=== PATIENT | female | born 2000 | race Caucasian/White ===

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

== ENCOUNTER → 2024-06-23 11:55 | Outpatient (CLI) | payer OTHER, SELFPAY ==
--- NOTE | 2024-06-23 11:57 | DI.US.S_ITS ---
PROCEDURE: US OB <= 14 WEEKS FETUS INDICATIONS: SPOTTING OUTSIDE/PRIOR DATING DATA: Last menstrual period (LMP): 05/05/2024. LMP-based estimated date of delivery (JETT): 02/09/2025. First dating scan (date and location): 06/23/2024. Estimated date of delivery (JETT) from first dating scan: 02/08/2025. TECHNIQUE: Real-time scanning was performed of the fetus and maternal pelvic organs, with image documentation. Endovaginal scanning was also performed to better visualize the fetus and maternal ovaries. COMPARISON: None. FINDINGS: pole measures 1 cm. Ultrasound age is 7 weeks and 1 day. Cardiac motion is seen at a rate of 140 beats per minute. Yolk sac is present. Probable right corpus luteum cyst. Suspect small perigestational bleeds, on the right measuring 1.3 x 1.3 cm and inferior uterus measuring 2.4 x 2 cm IMPRESSION: Living intrauterine gestation at an ultrasound age of 7 weeks and 1 day, consistent with the reported LMP. Small perigestational bleeds. Dictated by: Isidro Mercado M.D. on 06/23/2024 at 15:29 Approved by: Isidro Mercado M.D. on 06/23/2024 at 15:31
== END ==
LOC: US 11:56
PROVIDERS: Referring Provider Nurse Practitioner Obstetrics & Gynecology; Visit Provider Nurse Practitioner Obstetrics & Gynecology
DX: O26.851 Spotting complicating pregnancy, first trimester (principal); Z3A.01 Less than 8 weeks gestation of pregnancy
CPT/HCPCS: 76801; 76817

== ENCOUNTER → 2024-09-15 13:26 | Outpatient (CLI) | payer OTHER, SELFPAY ==
--- NOTE | 2024-09-15 13:28 | DI.US.S_ITS ---
PROCEDURE: US OB >= 14 WEEKS FETUS INDICATIONS: ANATOMY SCAN OUTSIDE/PRIOR DATING DATA: Last menstrual period (LMP): 05/05/2024. LMP-based estimated date of delivery (JETT): 02/09/2025. First dating scan (date and location): 06/23/2024. Estimated date of delivery (JETT) from first dating scan: 02/08/2025. The calculations are made using the working JETT of 02/09/2025. TECHNIQUE: Real-time scanning was performed of the fetus, with image documentation and biometric measurements. Endovaginal scanning: No COMPARISON: None. FINDINGS: General: A single living intrauterine gestation is present. Presentation: Transverse. Placenta: Placental position is fundal , without previa. Amniotic fluid index: 17.5 cm, normal range is 5-24 cm. Single deepest vertical pocket is 5.8 cm. heart rate: 155 beats per minute. Maternal cervical canal: 4.8 cm long. Normal lower limit is 2.5 cm. biometrics: Biparietal diameter: 4.8 cm, 20 week 3 day Head circumference: 17.1 cm, 19 week 5 day Abdominal circumference: 14.6 cm, 19 week 6 day Femur length: 3.0 cm, 19 week 1 day Clinically estimated gestational age: 19 week 0 day Composite gestational age from present scan: 19 week 6 day Estimated weight and percentile: 301 g, 79% Anatomic survey: Neuro: Ventricles are non-dilated at less than 10 mm. Cisterna magna is normal at 3-11 mm. Cerebellum is normal in size and morphology. Nuchal skin fold: Normal at less than 6 mm between 14-21 weeks gestational age. Face: Nose and lips, facial profile are normal. Spine: No evidence for spina bifida. Heart: 4-chambered heart is present, with normal ventricular outflow tracts. Diaphragm: Diaphragm is intact. Stomach: Left-sided stomach is present. Kidneys: No hydronephrosis. Normal is less than 5 mm in 2nd trimester, less than 7 mm in 3rd trimester. Cord: 3-vessel cord has orthotopic insertion. Bladder: Normal in size. Extremities: All 4 extremities identified. IMPRESSION: Single live intrauterine consistent with a 19 week 6 day gestation by current ultrasound. Minimally prominent renal collecting systems without hydronephrosis. Attention on follow-up. Otherwise unremarkable anatomic survey Approved by: Sincere Whitmore M.D. on 09/15/2024 at 16:51
== END ==
LOC: US 13:27
PROVIDERS: Referring Provider Advanced Practice Midwife; Visit Provider Advanced Practice Midwife
DX: Z34.92 Encounter for supervision of normal pregnancy, unspecified, second trimester (principal); Z3A.20 20 weeks gestation of pregnancy
CPT/HCPCS: 76811

== ENCOUNTER 2024-11-10 12:18 | Outpatient (CLI) | payer OTHER, SELFPAY ==
--- NOTE | 2024-11-10 12:31 | DI.US.S_ITS ---
PROCEDURE: US OB LIMITED INDICATIONS: 27 WEEKS; CONTRACTIONS; CX LENGTH OUTSIDE/PRIOR DATING DATA: Last menstrual period (LMP): 05/05/2024. LMP-based estimated date of delivery (JETT): 02/09/2025. First dating scan (date and location): 06/23/2024. Estimated date of delivery (JETT) from first dating scan: 02/08/2025. TECHNIQUE: Real-time scanning was performed of the fetus, with image documentation. Endovaginal scanning: Not done COMPARISON: [facility], OB <= 14 WEEKS FETUS, 06/23/2024, 12:30. [facility], OB >= 14 WEEKS FETUS, 09/15/2024, 13:39. FINDINGS: A single live intrauterine gestation is present. Presentation: Breech. Placenta: Placental position is posterior/fundal, without previa. Amniotic fluid index: 17.2 cm, normal range is 5-24 cm. Single deepest vertical pocket is 8 cm. heart rate: 152 beats per minute. Maternal cervical canal: 3.9 cm long. There is no funneling of the internal cervical os. Clinically estimated gestational age: 27 weeks 0 days IMPRESSION: The cervical length is 3.9 cm. No funneling of the internal cervical os. Dictated by: Fredrick Bahean M.D. on 11/10/2024 at 12:06 Approved by: Fredrick Bahena M.D. on 11/10/2024 at 12:08
[2024-11-10 12:49] LABS: Appearance Urine UA CLEAR; Bilirubin Urine UA NEGATIVE (NEGATIVE); Color Urine UA YELLOW; Glucose Urine UA NEGATIVE (Negative); Ketones Urine UA NEGATIVE (NEGATIVE); Leukocyte Esterase Urine UA 2+ (NEGATIVE); Nitrite Urine UA NEGATIVE (Negative); Occult Blood Urine UA NEGATIVE (Negative); Protein Urine UA NEGATIVE (Negative); Specific Gravity Urine UA 1.010 (1.000-1.035); Urobilinogen Urine UA 0.2 E.U./dL (0.2)
[2024-11-10 12:50] LABS: pH Urine UA 6.5 (4.5-8.0)
[2024-11-10 13:05] LABS: Culture Indicated Urine Specimen Cultured
--- NOTE | 2024-11-10 14:06 | P.TNLD_ITS ---
Visit Information Visit Information Date of evaluation: 11/10/24 Primary OB Provider: Sierra Hou On-call OB Provider: Sierra Hou Reason for Evaluation: Yes pre-term labor Comments/Additional reasons for admission: Leena is a at 27w0d by LMP confirmed by 7 week ultrasound. She reports contractions every 5-10 min since approx 0830 this morning, so came into triage for evaluation. Pain is in her back, rhythmic with tightening she feels with her uterus. Baby moving well. Denies vaginal bleeding, leaking of fluid. Declines starting antibiotics for possible UTI at this time. Vital Signs Vital Signs: BP: 115/70 HR: 106 bpm SpO2: 97% Temp: 36.9 C PFSH Medical History Ovarian cyst Depression with anxiety Surgical History Hx of breast reduction, elective Family History Grandmother Thyroid condition Sister Depression Social History marital status: unmarried,living together household members: significant other lives independently: Yes education level: college 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 Smokeless tobacco user: other alcohol intake: former substance use type: does not use Review of Systems Review of Systems Narrative: Negative except as mentioned in HPI Genitourinary Genitourinary: Reports as per HPI Comments: Cervical exam: long, closed. Objective Labs Labs: Laboratory Results - last 24 hr 11/10/24 12:30 Urine Color Yellow Urine Appearance Clear Urine pH 6.5 Ur Specific [place] 1.010 Urine Protein Negative Urine Glucose (UA) Negative Urine Ketones Negative Urine Occult Blood Negative Urine Nitrate Negative Urine Bilirubin Negative Urine Urobilinogen 0.2 Ur Leukocyte Esterase 2+ H Urine RBC None seen Urine WBC 5-10/hpf H Ur Squamous Epith Cells 5-10 /hpf H Amorphous Sediment 1+ Urine Bacteria Moderate (10-30) H Ur Culture Indicated? Specimen cultured Vol Urine Centrifuged 10ml (spun) Evaluation Evaluation Baseline heart rate: 150 Variability: Moderate (6-25) monitor accelerations: Present (10x10) Monitor Decelerations: Periodic Contraction Frequency (minutes): 8 (7-10, irregular, mild to palpation) Category of Tracing: Appropriate for gestational age (Reactive) Cervical dilation (cm): 0 Cervical effacement (%): 10 station: -4 Diagnosis, Plan/Disposition Final Diagnosis (1) uterine contractions in second trimester, antepartum: Status: Acute Problem details: Cervical length: 3.9 cm; NOT in labor (2) Supervision of normal in second trimester: Status: Acute Plan/Disposition Plan: Assessment: at 27w0d Pre-term contractions Abnormal UA RNST NST Cervical length ultrasound FFn collected and sent to lab UA collected; reflexed to Aptima and Affirm swabs collected to test for GC/CT, BV, yeast and trich. Ibuprofen 600 mg q 6-8 hours until RTC Friday for follow up/scheduled PNV.
== END 2024-11-10 14:00 | disposition home or self-care (01) ==
LOC: LABOR 16:03 → OB 11-11 08:00
PROVIDERS: Referring Provider Nurse Practitioner Obstetrics & Gynecology; Visit Provider Nurse Practitioner Obstetrics & Gynecology
DX: O47.02 False labor before 37 completed weeks of gestation, second trimester (principal); O26.892 Other specified pregnancy related conditions, second trimester; R82.90 Unspecified abnormal findings in urine; Z3A.27 27 weeks gestation of pregnancy
CPT/HCPCS: 59025; 76815; 81001; 87086; 87491; 87591; 87661; 87798; 87801; G0378; G0379

== ENCOUNTER → 2024-11-16 10:36 | Outpatient (CLI) | payer OTHER, SELFPAY ==
--- NOTE | 2024-11-16 10:39 | DI.US.S_ITS ---
PROCEDURE: US OB LIMITED INDICATIONS: LGA OUTSIDE/PRIOR DATING DATA: The calculations are made using the JETT of 02/09/2025. TECHNIQUE: Real-time scanning was performed of the fetus, with image documentation and biometric measurements. Endovaginal scanning: Not performed COMPARISON: [facility], OB LIMITED, 11/10/2024, 12:48. FINDINGS: General: A single living intrauterine gestation is present. Presentation: Vertex. Placenta: Placental position is posterior fundal , without previa. Amniotic fluid index: 20.9 cm, normal range is 5-24 cm. Single deepest vertical pocket is 6.1 cm. heart rate: 147 beats per minute. Maternal cervical canal: 4.4 cm long. Normal lower limit is 2.5 cm. biometrics: Biparietal diameter: 7.5 cm, 30 weeks 1 day Head circumference: 27.5 cm, 30 weeks 0 days Abdominal circumference: 25.5 cm, 29 weeks 5 days Femur length: 5.3 cm, 28 weeks 2 days Clinically estimated gestational age: 27 weeks 6 days Composite gestational age from present scan: 29 weeks 4 days Estimated weight and percentile: 1373 g, 89% Other: Not applicable. IMPRESSION: 1. Single live intrauterine consistent with 29 weeks and 4 days. 2. Estimated weight is in the 89th percentile. Developing macrosomia is in the differential, recommend follow-up ultrasound. 3. Amniotic fluid index of 20.9 cm is still within normal limits but at the higher and. We strive to produce accurate, complete, and clear reports of imaging services. To assist us in improving patient care, this report was composed using standard report templates and voice recognition software. Therefore, it may contain abnormal punctuation, insertions and/or omissions. Occasional wrong-word or sound-alike substitutions may occur. Though we review the report and make efforts to correct it, we do recommend that the report be read carefully in proper context to recognize any text inaccuracies. Dictated by: Jeffrey Mistry M.D. on 11/16/2024 at 13:17 Approved by: Jeffrey Mistry M.D. on 11/16/2024 at 13:20
== END ==
LOC: US 10:38
PROVIDERS: PCP Student in an Organized Health Care Education/Training Program; Referring Provider Nurse Practitioner Obstetrics & Gynecology; Visit Provider Nurse Practitioner Obstetrics & Gynecology
DX: O26.843 Uterine size-date discrepancy, third trimester (principal); Z3A.29 29 weeks gestation of pregnancy
CPT/HCPCS: 76815

== ENCOUNTER 2024-11-20 07:35 | Outpatient (CLI) | payer OTHER, SELFPAY ==
--- NOTE | 2024-11-20 | DI.US.S_ITS ---
PROCEDURE: US OB LIMITED INDICATIONS: cervical length OUTSIDE/PRIOR DATING DATA: Last menstrual period (LMP): 05/05/2024. LMP-based estimated date of delivery (JETT): 02/09/2025. First dating scan (date and location): 06/23/2024. Estimated date of delivery (JETT) from first dating scan: 02/08/2025. The calculations are made using the JETT by LMP JETT of 02/09/2025. TECHNIQUE: Real-time scanning was performed of the fetus, with image documentation. Endovaginal scanning: Was not performed COMPARISON: [facility], US OB LIMITED, 11/16/2024, 10:53. FINDINGS: A single living intrauterine gestation is present. Presentation: Breech Placenta: Placental position is posterior fundal, without previa. Amniotic fluid index: 18.6 cm, normal range is 5-24 cm. Single deepest vertical pocket is 7 cm. heart rate: 160 beats per minute. Maternal cervical canal: 3.6 cm long. Normal lower limit is 2.5 cm. Clinically estimated gestational age: 28 weeks 3 days Estimated gestational age from initial scan: 27 weeks 6 days. IMPRESSION: Live intrauterine with a normal cervical length. Dictated by: Will Ashton M.D. on 11/20/2024 at 8:31 Approved by: Will Ashton M.D. on 11/20/2024 at 8:36
[2024-11-20 08:03] LABS: Appearance Urine UA CLEAR; Bilirubin Urine UA NEGATIVE (NEGATIVE); Color Urine UA YELLOW; Glucose Urine UA NEGATIVE (Negative); Ketones Urine UA NEGATIVE (NEGATIVE); Leukocyte Esterase Urine UA 3+ (NEGATIVE); Nitrite Urine UA NEGATIVE (Negative); Occult Blood Urine UA NEGATIVE (Negative); Protein Urine UA NEGATIVE (Negative); Specific Gravity Urine UA <=1.005 (1.000-1.035); Urobilinogen Urine UA 0.2 E.U./dL (0.2)
[2024-11-20 08:08] LABS: pH Urine UA 6.5 (4.5-8.0)
--- NOTE | 2024-11-20 08:14 | P.TNLD_ITS ---
Visit Information Visit Information Date of evaluation: 11/20/24 Primary OB Provider: Marilee Almeida Reason for Evaluation: Yes rule out labor Comments/Additional reasons for admission: Camila is a 24 year old at 28w 3d here for rule out of pre-term labor. She called CNM at 0532 with c/o menstrual like cramping that woke her up at 0400 and feeling like a clot was trying to come through the cervix. She texted back at 0637 reporting it was not improving so CNM recommended coming in for evaluation. Denies vaginal bleeding and leaking of fluid. Vital Signs Vital Signs: BP: 121/66, P: 101, T: 36.9 C [facility] Medical History Ovarian cyst Depression with anxiety Surgical History Hx of breast reduction, elective Family History Grandmother Thyroid condition Sister Depression Social History marital status: unmarried,living together household members: significant other lives independently: Yes education level: college 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 Smokeless tobacco user: other alcohol intake: former substance use type: does not use Review of Systems Review of Systems ROS: Yes All systems reviewed with the patient and are negative except as otherwise documented Exam Vital Signs (past 8 hours): see above Presentation: full/complete breech Objective Imaging OB US >14wks, limited- cervical length: My impression: CL-3.7cm, no funneling Radiologist's impression: PROCEDURE: US OB LIMITED INDICATIONS: cervical length OUTSIDE/PRIOR DATING DATA: Last menstrual period (LMP): 05/05/2024. LMP-based estimated date of delivery (EJTT): 02/09/2025. First dating scan (date and location): 06/23/2024. Estimated date of delivery (JETT) from first dating scan: 02/08/2025. The calculations are made using the JETT by LMP JETT of 02/09/2025. TECHNIQUE: Real-time scanning was performed of the fetus, with image documentation. Endovaginal scanning: Was not performed COMPARISON: [facility], , OB LIMITED, 11/16/2024, 10:53. FINDINGS: A single living intrauterine gestation is present. Presentation: Breech Placenta: Placental position is posterior fundal, without previa. Amniotic fluid index: 18.6 cm, normal range is 5-24 cm. Single deepest vertical pocket is 7 cm. heart rate: 160 beats per minute. Maternal cervical canal: 3.6 cm long. Normal lower limit is 2.5 cm. Clinically estimated gestational age: 28 weeks 3 days Estimated gestational age from initial scan: 27 weeks 6 days. IMPRESSION: Live intrauterine with a normal cervical length. Dictated by: Will Ashton M.D. on 11/20/2024 at 8:31 Approved by: Will Ashton M.D. on 11/20/2024 at 8:36 Labs Labs: Laboratory Results - last 24 hr 11/20/24 07:40 Urine Color Yellow Urine Appearance Clear Urine pH 6.5 Ur Specific [place] <=1.005 Urine Protein Negative Urine Glucose (UA) Negative Urine Ketones Negative Urine Occult Blood Negative Urine Nitrate Negative Urine Bilirubin Negative Urine Urobilinogen 0.2 Ur Leukocyte Esterase 3+ H OPAL/Wet Mount: White blood cells Many WBCs seen Clue cells: None seen Yeast: None seen Trichomonas: None seen Evaluation Evaluation Baseline heart rate: 150 Variability: Moderate (6-25) monitor accelerations: Present Monitor Decelerations: Absent Category of Tracing: Reactive Cervical dilation (cm): 1 Comments: CE: Soft, thick Diagnosis, Plan/Disposition Final Diagnosis (1) False labor before 37 completed weeks of gestation, third trimester: Status: Acute (2) Encounter for supervision of normal first , third trimester: Status: Acute (3) Breech presentation: Status: Acute Plan/Disposition Plan: fFN collected and held given cervical exam and cervical length >3cm Patient given reassurance for no contractions by [place] and low concern for pre- term labor after evaluation No concern for urinary or vaginal infection Patient declined continued observation Reviewed warning signs and when to call Discharge to home F/U in Clinic as previously scheduled OB Disposition: home
[2024-11-20 08:21] LABS: Culture Indicated Urine Cult Not Indicated
== END 2024-11-20 08:56 | disposition home or self-care (01) ==
LOC: LABOR 07:41 → OB 11-23 07:23
PROVIDERS: PCP Student in an Organized Health Care Education/Training Program; Referring Provider Nurse Practitioner Obstetrics & Gynecology; Visit Provider Nurse Practitioner Obstetrics & Gynecology
DX: O47.03 False labor before 37 completed weeks of gestation, third trimester (principal); O32.1XX0 Maternal care for breech presentation, not applicable or unspecified; Z3A.28 28 weeks gestation of pregnancy
CPT/HCPCS: 59025; 76815; 81001; 87210; G0378; G0379

== ENCOUNTER 2024-12-04 11:57 | Outpatient (CLI) | payer OTHER, SELFPAY ==
[2024-12-04 12:19] LABS: Appearance Urine UA CLEAR; Bilirubin Urine UA NEGATIVE (NEGATIVE); Color Urine UA YELLOW; Glucose Urine UA NEGATIVE (Negative); Ketones Urine UA NEGATIVE (NEGATIVE); Leukocyte Esterase Urine UA 1+ (NEGATIVE); Nitrite Urine UA NEGATIVE (Negative); Occult Blood Urine UA NEGATIVE (Negative); Protein Urine UA NEGATIVE (Negative); Specific Gravity Urine UA 1.010 (1.000-1.035); Urobilinogen Urine UA 0.2 E.U./dL (0.2)
[2024-12-04 12:21] LABS: pH Urine UA 6.0 (4.5-8.0)
[2024-12-04 12:25] LABS: Culture Indicated Urine Specimen Cultured
== END 2024-12-04 12:52 | disposition home or self-care (01) ==
LOC: LABOR 12:35 → OB 12-06 12:13
PROVIDERS: PCP Student in an Organized Health Care Education/Training Program; Referring Provider Student in an Organized Health Care Education/Training Program; Visit Provider Student in an Organized Health Care Education/Training Program
DX: O47.03 False labor before 37 completed weeks of gestation, third trimester (principal); Z3A.30 30 weeks gestation of pregnancy
CPT/HCPCS: 59025; 81001; 87086; G0378; G0379

== ENCOUNTER → 2024-12-22 11:00 | Outpatient (CLI) | payer OTHER, SELFPAY ==
--- NOTE | 2024-12-22 11:01 | DI.US.S_ITS ---
PROCEDURE: US OB FOLLOW UP
== END ==
LOC: US 11:00
PROVIDERS: PCP Student in an Organized Health Care Education/Training Program; Referring Provider Family Medicine; Visit Provider Family Medicine
DX: Z34.03 Encounter for supervision of normal first pregnancy, third trimester (principal); Z3A.34 34 weeks gestation of pregnancy
CPT/HCPCS: 76816

== ENCOUNTER 2024-12-26 08:44 | Outpatient (CLI) | payer OTHER, SELFPAY ==
--- NOTE | 2024-12-26 09:22 | PM.OBTRLD ---
Visit Information Visit Information Date of evaluation: 12/26/24 Primary OB Provider: Rafaela Molina On-call OB Provider: Amanda Anthony Comments/Additional reasons for admission: This is a 24 yo at 33w4d here with contractions/back cramping for past 24 hours. pain /10. Lost mucus plug yesterday. [facility] Medical History (Updated 12/13/24 @ 11:23 by Rosemary Thomas MD) Ovarian cyst Surgical History (Updated 11/29/24 @ 13:36 by Ashly Navarro, RN) History of tympanostomy History of dilation and curettage Hx of breast reduction, elective Family History (Updated 11/29/24 @ 13:38 by Ashly Navarro, RN) Grandmother Hypothyroidism Sister Depression Grandfather Brain cancer Social History (System 11/26/24 @ 12:16 by Constance Floyd) marital status: unmarried,living together number of children: 0 household members: significant other lives independently: Yes caregiver/support person: No housing: house pets and animals: Yes (dogs) education level: college (some college) 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) current occupational exposures/hazards: No special steve needs: No travel history: over 6 months ago seatbelt use: always water heater temp set < 120 deg: Yes working smoke detector in home: Yes fire extinguisher in home: Yes carbon monox detector in home: Yes firearms in home: Yes firearms unloaded and locked: Yes do you feel safe at home: Yes Tobacco: How many years used: 3 (off and on) Smokeless tobacco user: other quit status: has quit before second hand exposure: No alcohol intake: former (~2-3/week when not ) substance use type: does not use during the past year weight has: decreased > 10 lbs (intentional) well-balanced diet: daily or most days daily servings fruits/ve-4 caffeine: Yes (single cup coffee) Type(s) of exercise: walking Exam Narrative Exam Narrative: SVE with visualized closed/1 cm cervix. Copious amounts of foamy yellow discharge. Evaluation Evaluation Baseline heart rate: 135 Variability: Moderate (6-25) monitor accelerations: Present Monitor Decelerations: Absent Uterine Contraction Intensity: Mild Category of Tracing: Reactive Diagnosis, Plan/Disposition Plan/Disposition Plan: 24 yo at 33w4d here with cramping. Speculum exam with copious yellow foamy discharge. Wet mount sent but will treat for BV. Will also give IV fluids, and 25 mg hydroxyzine for uterine irritability. When irritability improves will send home. FU appointment tomorrow with primary OB. OB Disposition: home
[2024-12-26 10:00] LABS: Appearance Urine UA CLEAR; Bilirubin Urine UA NEGATIVE (NEGATIVE); Color Urine UA YELLOW; Glucose Urine UA NEGATIVE (Negative); Ketones Urine UA NEGATIVE (NEGATIVE); Leukocyte Esterase Urine UA 1+ (NEGATIVE); Nitrite Urine UA NEGATIVE (Negative); Occult Blood Urine UA NEGATIVE (Negative); Protein Urine UA NEGATIVE (Negative); Specific Gravity Urine UA <=1.005 (1.000-1.035); Urobilinogen Urine UA 0.2 E.U./dL (0.2)
[2024-12-26 10:01] LABS: pH Urine UA 7.0 (4.5-8.0)
[2024-12-26 10:03] LABS: Culture Indicated Urine Specimen Cultured
== END 2024-12-26 10:29 | disposition home or self-care (01) ==
LOC: LABOR 09:27 → OB 12-27 07:48
PROVIDERS: PCP Student in an Organized Health Care Education/Training Program; Referring Provider Family Medicine; Visit Provider Family Medicine
DX: O23.593 Infection of other part of genital tract in pregnancy, third trimester (principal); Z3A.33 33 weeks gestation of pregnancy; Z36.9 Encounter for antenatal screening, unspecified
CPT/HCPCS: 59025; 59050; 81001; 87070; 87086; 87205; 96360; G0378; A9270; G0379

== ENCOUNTER 2024-12-30 16:34 | Outpatient (CLI) | payer OTHER, SELFPAY ==
--- NOTE | 2024-12-30 16:58 | P.TNLD_ITS ---
Visit Information Visit Information Date of evaluation: 12/30/24 Primary OB Provider: Rafaela Molina Comments/Additional reasons for admission: 24yo presenting at 74 vaginal bleedig this AM which has since resolved. she was wiping and noticed some pink on the toilet paper. This has not recurred since then. She is feeling baby move. HAs noticed pelvic pressure but has noticed this for the last few weeks. She has recently had triage eval with FFN that was negative and multiple negative wet jen. She prefers to hold off on wet mount today but is ok with UA And wtih spec exam [facility] Medical History (Updated 12/13/24 @ 11:23 by Rosemary Thomas MD) Ovarian cyst Surgical History (Updated 11/29/24 @ 13:36 by Ahsly Navarro, [place]) History of tympanostomy History of dilation and curettage Hx of breast reduction, elective Family History (Updated 11/29/24 @ 13:38 by Ashly Navarro, RN) Grandmother Hypothyroidism Sister Depression Grandfather Brain cancer Social History (System 11/26/24 @ 12:16 by Constance Floyd) marital status: unmarried,living together number of children: 0 household members: significant other lives independently: Yes caregiver/support person: No housing: house pets and animals: Yes (dogs) education level: college (some college) 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 ([employer]) current occupational exposures/hazards: No special steve needs: No travel history: over 6 months ago seatbelt use: always water heater temp set < 120 deg: Yes working smoke detector in home: Yes fire extinguisher in home: Yes carbon monox detector in home: Yes firearms in home: Yes firearms unloaded and locked: Yes do you feel safe at home: Yes Tobacco: How many years used: 3 (off and on) Smokeless tobacco user: other quit status: has quit before second hand exposure: No alcohol intake: former (~2-3/week when not ) substance use type: does not use during the past year weight has: decreased > 10 lbs (intentional) well-balanced diet: daily or most days daily servings fruits/ve-4 caffeine: Yes (single cup coffee) Type(s) of exercise: walking Exam Narrative Exam Narrative: Genera- NAD, appears generally comfortable abdomen- soft, gravid, nontender SSE- cervix appears closed and long, there is some slight psychiologic appearing discharge present, no bleeding visible Evaluation Evaluation Baseline heart rate: 135 Variability: Moderate (6-25) monitor accelerations: Present Monitor Decelerations: Absent Contraction Frequency (minutes): 10 Uterine Contraction Intensity: Mild Status: Category l Diagnosis, Plan/Disposition Plan/Disposition Plan: 24yo at 34w1d for vaginal bleeding this AM which has since resolved. 1. vaginal beeding: has since resolved. Discussed wet mount, pt has had multiple with most recent earlier this week, all negative. She is reassuring by NST and SSE and prefers to avoid wet mount. REcent FFN negative as well - SSE reassuring, no bleeding - NST reassuring - UA sent - return precuations reviewed dispo- discharge home, strict labor precautions reviewed, f/up in clinic or sooner if sx recur OB Disposition: home
[2024-12-30 17:46] LABS: Appearance Urine UA CLEAR; Bilirubin Urine UA NEGATIVE (NEGATIVE); Color Urine UA YELLOW; Glucose Urine UA NEGATIVE (Negative); Ketones Urine UA NEGATIVE (NEGATIVE); Leukocyte Esterase Urine UA NEGATIVE (NEGATIVE); Nitrite Urine UA NEGATIVE (Negative); Occult Blood Urine UA NEGATIVE (Negative); Protein Urine UA NEGATIVE (Negative); Specific Gravity Urine UA <=1.005 (1.000-1.035); Urobilinogen Urine UA 0.2 E.U./dL (0.2); pH Urine UA 5.5 (4.5-8.0)
[2024-12-30 17:59] LABS: Culture Indicated Urine Cult Not Indicated
== END 2024-12-30 17:27 | disposition home or self-care (01) ==
LOC: LABOR 16:45 → OB 12-31 09:34
PROVIDERS: PCP Student in an Organized Health Care Education/Training Program; Referring Provider Family Medicine; Visit Provider Student in an Organized Health Care Education/Training Program
DX: O46.93 Antepartum hemorrhage, unspecified, third trimester (principal); Z3A.34 34 weeks gestation of pregnancy
CPT/HCPCS: 59025; 81001; G0378; G0379

== ENCOUNTER 2025-01-06 16:21 | Observation (INO) | payer OTHER, SELFPAY ==
--- NOTE | 2025-01-06 19:20 | PM.OBTRLD ---
Visit Information Visit Information Date of evaluation: 01/06/25 Primary OB Provider: Rafaela Molina Reason for Evaluation: Yes pre-term labor Comments/Additional reasons for admission: 24 yo G1 presenting at 35w1d for contractions and back pain. Discomfort started yesterday with low back pain and developed pelvic pressure as well. She presents today for labor r/o. she has had contractions off and on for a few weeks now. labor work ups have thus far been negative. She has no other complaints today, no Pre-E sx, no dysuria, no vaginal discharge [facility] Medical History (Updated 12/13/24 @ 11:23 by Rosemary Thomas MD) Ovarian cyst Surgical History (Updated 11/29/24 @ 13:36 by Ashly Navarro, [place]) History of tympanostomy History of dilation and curettage Hx of breast reduction, elective Family History (Updated 11/29/24 @ 13:38 by Ashly Navarro RN) Grandmother Hypothyroidism Sister Depression Grandfather Brain cancer Social History (System 11/26/24 @ 12:16 by Constance Floyd) marital status: unmarried,living together number of children: 0 household members: significant other lives independently: Yes caregiver/support person: No housing: house pets and animals: Yes (dogs) education level: college (some college) 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 ([employer]) current occupational exposures/hazards: No special steve needs: No travel history: over 6 months ago seatbelt use: always water heater temp set < 120 deg: Yes working smoke detector in home: Yes fire extinguisher in home: Yes carbon monox detector in home: Yes firearms in home: Yes firearms unloaded and locked: Yes do you feel safe at home: Yes Tobacco: How many years used: 3 (off and on) Smokeless tobacco user: other quit status: has quit before second hand exposure: No alcohol intake: former (~2-3/week when not ) substance use type: does not use during the past year weight has: decreased > 10 lbs (intentional) well-balanced diet: daily or most days daily servings fruits/ve-4 caffeine: Yes (single cup coffee) Type(s) of exercise: walking Exam Narrative Exam Narrative: Genera- NAD, appears generally comfortable abdomen- soft, gravid, nontender : nml external genitalia, no LOF or bleeding Evaluation Evaluation Baseline heart rate: 130 Variability: Moderate (6-25) monitor accelerations: Present Monitor Decelerations: Absent Contraction Frequency (minutes): 8 Uterine Contraction Intensity: Moderate Category of Tracing: Reactive Status: Category l Cervical dilation (cm): 0.5 Cervical effacement (%): 40 station: -4 Diagnosis, Plan/Disposition Plan/Disposition Plan: 24 yo G1 presenting at 35w1d for contractions and back pain. Discomfort started yesterday with low back pain and developed pelvic pressure as well. She presents today for labor r/o. she has had contractions off and on for a few weeks now. labor work ups have thus far been negative. She has no other complaints today, no Pre-E sx, no dysuria, no vaginal discharge, After 2 hrs, SVE rechecked and veyr tight 1. discussed options of staying overnight vs going home. Pt prefers to go home. Will f/up early next week in clinic for sx review. REturn precautions discussed. OB Disposition: home
== END 2025-01-06 19:25 | disposition home or self-care (01) ==
LOC: LABOR 16:22
PROVIDERS: Admitting Provider Family Medicine; PCP Family Medicine; Referring Provider Family Medicine; Visit Provider Family Medicine
DX: O47.03 False labor before 37 completed weeks of gestation, third trimester (principal); O26.893 Other specified pregnancy related conditions, third trimester; M54.9 Dorsalgia, unspecified; Z3A.35 35 weeks gestation of pregnancy
CPT/HCPCS: 59025; G0378; G0379

== ENCOUNTER → 2025-01-10 14:10 | Outpatient (CLI) | payer OTHER, SELFPAY ==
[2025-01-11 10:03] LABS: Strep Grp B PCR NEG for Grp B Strep
== END ==
PROVIDERS: PCP Family Medicine; Visit Provider Family Medicine
DX: Z36.85 Encounter for antenatal screening for Streptococcus B (principal)
CPT/HCPCS: 87653

== ENCOUNTER 2025-01-14 07:23 | Observation (INO) | payer OTHER, SELFPAY ==
[2025-01-14 07:55] LABS: Appearance Urine UA CLEAR; Bilirubin Urine UA NEGATIVE (NEGATIVE); Color Urine UA YELLOW; Glucose Urine UA NEGATIVE (Negative); Ketones Urine UA NEGATIVE (NEGATIVE); Leukocyte Esterase Urine UA 2+ (NEGATIVE); Nitrite Urine UA NEGATIVE (Negative); Occult Blood Urine UA NEGATIVE (Negative); Protein Urine UA NEGATIVE (Negative); Specific Gravity Urine UA 1.015 (1.000-1.035); Urobilinogen Urine UA 0.2 E.U./dL (0.2)
[2025-01-14 07:56] LABS: pH Urine UA 6.5 (4.5-8.0)
[2025-01-14 07:59] LABS: Culture Indicated Urine Specimen Cultured
== END 2025-01-14 08:22 | disposition home or self-care (01) ==
PROVIDERS: Admitting Provider Family Medicine; PCP Student in an Organized Health Care Education/Training Program; Referring Provider Family Medicine; Visit Provider Family Medicine
DX: O47.03 False labor before 37 completed weeks of gestation, third trimester (principal); Z3A.36 36 weeks gestation of pregnancy
CPT/HCPCS: 59025; 81001; 84112; 87086; G0378; G0379

== ENCOUNTER 2025-01-15 19:32 | Outpatient (CLI) | payer OTHER, SELFPAY | END 2025-01-15 20:14 | disposition home or self-care (01) | LOC: OB 01-17 13:49 | PROVIDERS: PCP Student in an Organized Health Care Education/Training Program; Referring Provider Student in an Organized Health Care Education/Training Program; Visit Provider Student in an Organized Health Care Education/Training Program | DX: O26.893 Other specified pregnancy related conditions, third trimester (principal); Z3A.36 36 weeks gestation of pregnancy | CPT/HCPCS: 59025; 84112; G0378; G0379 ==

== ENCOUNTER 2025-01-20 09:23 | Outpatient (CLI) | payer OTHER, SELFPAY ==
--- NOTE | 2025-01-20 10:41 | PM.OBTRLD ---
Visit Information Visit Information Date of evaluation: 01/20/25 Primary OB Provider: Rafaela Molina Reason for Evaluation: Yes rule out labor [facility] Medical History (Updated 12/13/24 @ 11:23 by Rosemary Thomas MD) Ovarian cyst Surgical History (Updated 11/29/24 @ 13:36 by Ashly Navarro, RN) History of tympanostomy History of dilation and curettage Hx of breast reduction, elective Family History (Updated 11/29/24 @ 13:38 by Ashly Navarro, RN) Grandmother Hypothyroidism Sister Depression Grandfather Brain cancer Social History (System 11/26/24 @ 12:16 by Constance Floyd) marital status: unmarried,living together number of children: 0 household members: significant other lives independently: Yes caregiver/support person: No housing: house pets and animals: Yes (dogs) education level: college (some college) 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 ([employer]) current occupational exposures/hazards: No special steve needs: No travel history: over 6 months ago seatbelt use: always water heater temp set < 120 deg: Yes working smoke detector in home: Yes fire extinguisher in home: Yes carbon monox detector in home: Yes firearms in home: Yes firearms unloaded and locked: Yes do you feel safe at home: Yes Tobacco: How many years used: 3 (off and on) Smokeless tobacco user: other quit status: has quit before second hand exposure: No alcohol intake: former (~2-3/week when not ) substance use type: does not use during the past year weight has: decreased > 10 lbs (intentional) well-balanced diet: daily or most days daily servings fruits/ve-4 caffeine: Yes (single cup coffee) Type(s) of exercise: walking Exam Vital Signs (past 8 hours): BP - 129.76 TEmp - 36.8 HR- 114 Evaluation Evaluation Baseline heart rate: 120 Variability: Moderate (6-25) monitor accelerations: Present Monitor Decelerations: Absent Status: Category l Cervical dilation (cm): 1 Cervical effacement (%): 30 station: -4 Diagnosis, Plan/Disposition Plan/Disposition Plan: 24 yo G1 presenting at 37w1d for contractions and back pain. She has been april intermittently since yesterday but not anything regular. She presents today for labor r/o. she has had contractions off and on for a few weeks now. labor work ups have thus far been negative. She did have some diarrhea yesterday and continued low back pain similar to previou. SVE stable from previous checks. will discharge home with labor precuations. Will f/up early next week in clinic for sx review. REturn precautions discussed. OB Disposition: home
== END 2025-01-20 10:47 | disposition home or self-care (01) ==
LOC: LABOR 09:59 → OB 13:52
PROVIDERS: PCP Student in an Organized Health Care Education/Training Program; Referring Provider Family Medicine; Visit Provider Family Medicine
DX: O47.1 False labor at or after 37 completed weeks of gestation (principal); Z3A.37 37 weeks gestation of pregnancy
CPT/HCPCS: 59025; G0378; G0379

== ENCOUNTER 2025-01-28 18:03 | Inpatient (IN) | payer OTHER, SELFPAY ==
--- NOTE | 2025-01-28 19:14 | PM.OBHP.IH.1 ---
OB HPI Date/Time Date of admission: 01/28/25 Date Patient Seen: 01/28/25 Time Patient Seen: 19:15 History of Present Condition Chief complaint: nst JETT Calculator Estimated Delivery Date Method Current WG Current Estimate 02/09/25 LMP (Certain) 38w 2d Other Estimates 02/08/25 Ultrasound #1 38w 3d Narrative: Patient presents with increasingly painful contractions since 12 noon today. She woke up this morning and got out of bed, and noticed a large gush of fluid that ran down her legs. Through the rest of the day, she has noticed increased watery discharge but no other obvious large gushes. She has a lot of mucousy discharge as well. care: good care Dating criteria OB: LMP confirmed by 1st trimester US Ultrasounds: normal mid trimester US Abnormal ultrasound findings: 12/22/2024: Bilateral renal pelviectasis measuring 11.6 mm on the right and 7.6 mm on the left. Obstetrical complications: none Medical complications OB: none Narrative: Rubella non-immune Indications Indication for induction OB: other (PROM) Preadmission Labs Last OB Lab Results: Hct, (36-46) 42.6 % 06/23/23, 15:29 Hgb, (12.0-16.0) 14.4 g/dL 06/23/23, 15:29 Group B Strep (PCR) Neg for grp b strep 01/10/25, 14:10 -: Urine: negative Genetic Screens: Cell-free DNA: Normal External Labs -: Urine: negative Glucose Tolerance Testin hr (93) Prior (ies) Past Pregnancies Del. Date GA/Weeks Labor Lgth Wt Sex Route Outcome Anesthesia Place Delv Breastfeed Preg Comp Name 09/18/23 6 elective 11/18/23 7 elective Delivery Date: 09/18/23 Last Updated by: Ashly Navarro RN D&C, no complications Delivery Date: 11/18/23 Last Updated by: Ashly Navarro RN Oral meds only, no complications Evaluation Evaluation Baseline heart rate: 130 Variability: Moderate (6-25) monitor accelerations: Present Monitor Decelerations: Absent Contraction Frequency (minutes): 15 Uterine Contraction Intensity: Mild Category of Tracing: Reactive Status: Category l Dilation (cm): 1 Effacement (%): 30 station: -3 Non-invasive Membranes Rupture Test: positive [facility] Medical History Breech presentation Rubella non-immune status, antepartum Ovarian cyst Surgical History History of tympanostomy History of dilation and curettage Hx of breast reduction, elective Family History Grandmother Hypothyroidism Sister Depression Grandfather Brain cancer Social History marital status: unmarried,living together number of children: 0 household members: significant other lives independently: Yes caregiver/support person: No housing: house pets and animals: Yes (dogs) education level: college (some college) 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) current occupational exposures/hazards: No special steve needs: No travel history: over 6 months ago seatbelt use: always water heater temp set < 120 deg: Yes working smoke detector in home: Yes fire extinguisher in home: Yes carbon monox detector in home: Yes firearms in home: Yes firearms unloaded and locked: Yes do you feel safe at home: Yes Tobacco: How many years used: 3 (off and on) Smokeless tobacco user: other quit status: has quit before second hand exposure: No alcohol intake: former (~2-3/week when not ) substance use type: does not use during the past year weight has: decreased > 10 lbs (intentional) well-balanced diet: daily or most days daily servings fruits/ve-4 caffeine: Yes (single cup coffee) Type(s) of exercise: walking Meds Home Medications and Allergies Home Medications ?Medication ?Instructions ?Recorded ?Confirmed ?Type vitamin-ferrous sulfate tab PO 11/29/24 12/02/24 History 27 mg iron-folic acid 0.8 mg tablet duloxetine 20 mg capsule,delayed 20 mg PO DAILY #90 caps 12/02/24 12/02/24 Rx release sulfamethoxazole 400 1 tab PO BID #10 tabs 12/05/24 Rx mg-trimethoprim 80 mg tablet (Bactrim) RSVPreF3 antigen-AS01E 0.5 ml IM ONCE #1 ea 12/13/24 12/13/24 Rx adjuvant(PF) 120 mcg/0.5 mL IM suspension, kit Allergies Allergy/AdvReac Type Severity Reaction Status Date / Time nitrofurantoin (From Allergy Severe Hives Verified 12/02/24 11:53 Macrobid) chicken derived Allergy Intermediate Numbness Verified 12/02/24 11:53 Penicillins AdvReac Mild Vomiting Verified 12/02/24 11:53 Review of Systems Review of Systems ROS: Yes All systems reviewed with the patient and are negative except as otherwise documented OB Exam Vital signs Blood Pressure: 121/82 Pulse Rate: 96 Respiratory Rate: 16 Temperature: 36.4 F HENMT Head: normocephalic and atraumatic Resp Effort & Inspection: normal respiratory effort and no respiratory distress Cardio Rate: regular rate Rhythm: regular rhythm Extremities Lower extremity: Yes normal to inspection; No edema GI Other: Nontender, gravid External Female Exam: Yes normal external appearance Presentation: vertex Estimated Weight (lbs): 8 Amniotic Fluid: clear Assessment and Plan Assessment and Plan Assessment and Plan narrative: # PROM - discussed recommendation for augmentation now that about 12 hours have elapsed since first noticed fluid leakage and she is not in labor yet. Reviewed infection risk. Reviewed induction methods. Discussed misoprostol vs. pitocin, and recommended PO misoprostol. Patient accepts. # Status: Cat I FHT - intermittent monitoring OK # RSV vaccine received in # Bilateral pyelectasis - notify peds for follow-up # History of bilateral breast reduction - consult planned Time-Based Coding :: [TOTAL MINUTES] spent with patient and on the chart (including review of chart, obtaining history, exam, reviewing outside data, placing orders, documenting exam and treatment plan, and counseling patient) on [DATE].
[2025-01-28 19:31] VITALS: BP 121/82; PULSE 96; RESP 16; TEMP 2.4; TEMP 36.4
[2025-01-28 20:02] LABS: Add Manual Diff / Slide Review NO; Hematocrit 39.4 % (36-46); Hemoglobin 13.6 g/dL (12.0-16.0); Lymphocytes Absolute Auto 2600 /uL (1100-4500); Mean Corpuscular HGB Conc 34.4 % (30-36); Mean Corpuscular Hemoglobin 30.6 PG (26-34); Mean Corpuscular Volume 89.0 fL (80-100); Platelet Count 187 X10^3/uL (150-400)
[2025-01-28 20:48] VITALS: BP 121/82
[2025-01-29] MEDS: LACTATED RINGERS 1,000 ML 100 ML IV (01:36)
[2025-01-29] MEDS: OXYTOCIN PREMIX 30 UNIT/500 ML PLAST..BAG IV (01:37)
--- NOTE | 2025-01-29 08:26 | PM.AN.REGBLK ---
Regional Block Pre-procedure Procedure: Continuous Lumbar Epidural for L&D (with DPE) Attending OB provider: Karie Hedrick PM/CHEVY narrative: 24yo female in labor requesting epidural. See pre-anesthesia evaluation for further details. Hx: No personal or family history of anesthesia problems. ASA Class: II Labs: Hct 39.4 % (36-46) 01/28/25 19:35 Plt Count 187 X10^3/uL (150-400) 01/28/25 19:35 Medications: Current Medications Generic Name Dose Route Start Last Admin Trade Name Freq PRN Reason Stop Dose Admin Butorphanol Tartrate 0.5 mg 01/29/25 08:24 Butorphanol 1 Mg/Ml Vial IV Q3H PRN Pruritis Calcium Carbonate 1,000 mg 01/28/25 19:02 Calcium Carbonate 500 Mg Tab PO Q2HR PRN Dyspepsia Carboprost Tromethamine 250 mcg 01/28/25 19:02 Carboprost 250 Mcg/Ml Ampul IM Q90M PRN Bleeding Duloxetine HCl 20 mg 01/29/25 09:00 Duloxetine 20 Mg Capsule.Dr PO DAILY [place] Ephedrine Sulfate 10 mg 01/29/25 08:24 Ephedrine 50 Mg/Ml Vial IV Q5M PRN Blood Pressure - Low Oxytocin/Lactated Ringer's 30 unit in 500 mls @ 200 mls/hr 01/28/25 19:02 Oxytocin Premix IV CONT PRN Bleeding Protocol Tranexamic Acid 1,000 mg/ 100 mls @ 600 mls/hr 01/28/25 19:02 Sodium Chloride IV NOW PRN Bleeding Oxytocin/Lactated Ringer's 30 unit in 500 mls @ 2 mls/hr 01/29/25 01:04 01/29/25 01:37 Oxytocin Premix IV 2 milliunit/min TITRATE [place] 2 mls/hr Protocol Administration 2 MILLIUNIT/MIN Lactated Ringer's 1,000 mls @ 999 mls/hr 01/29/25 08:24 Lactated Ringers IV 01/29/25 09:24 BOLUS ONE FENT 2MCG/ML BUPIV 0.125% EPI 200 mcg in 100 mls @ 8 mls/hr 01/29/25 08:30 Fentanyl/Bupiv/Ns 2mcg/Ml - 0.125% EPIDURAL CONT [place] Protocol Lidocaine HCl 20 ml 01/28/25 19:02 Lidocaine 1% 20 Ml INJ INTRA-OP PRN Post Delivery Methylergonovine Maleate 0.2 mg 01/28/25 19:02 Methylergonovine 0.2 Mg Tablet PO Q6HR PRN Heavy Bleeding Methylergonovine Maleate 0.2 mg 01/28/25 19:02 Methylergonovine 0.2 Mg/Ml Vial IM NOW PRN Bleeding Metoclopramide HCl 10 mg 01/29/25 08:24 Metoclopramide 10 Mg/2 Ml Inj IV Q4H PRN Nausea And Vomiting Mineral Oil 30 ml 01/28/25 19:02 Mineral Oil 30 Ml Udc TOP PRN PRN Version Misoprostol 800 mcg 01/28/25 19:02 Misoprostol 200 Mcg Tablet VT NOW PRN Bleeding Misoprostol 400 mcg 01/28/25 19:02 Misoprostol 200 Mcg Tablet SL NOW PRN Bleeding Misoprostol 50 mcg 01/28/25 19:02 01/28/25 19:59 Misoprostol 25 Mcg Tablet PO 50 mcg Q4H PRN Administration cervical ripening Nalbuphine HCl 5 mg 01/29/25 08:24 Nalbuphine 20 Mg/Ml Ampul IV Q6H PRN Pruritus Naloxone HCl 0.2 mg 01/28/25 19:02 Naloxone 0.4 Mg/Ml Vial IV Q2MIN PRN Opiate Reversal Naloxone HCl 0.2 mg 01/29/25 08:24 Naloxone 0.4 Mg/Ml Vial IV Q2MIN PRN Opiate Reversal Ondansetron HCl 4 mg 01/28/25 19:02 Ondansetron 4 Mg/2 Ml Inj IV Q4HR PRN Nausea And Vomiting Ondansetron HCl 4 mg 01/29/25 08:24 Ondansetron 4 Mg/2 Ml Inj IV Q4H PRN Nausea And Vomiting Oxytocin 10 unit 01/28/25 19:02 Oxytocin 10 Unit/Ml Vial IM NOW PRN Bleeding Allergies: Allergies Allergy/AdvReac Type Severity Reaction Status Date / Time nitrofurantoin (From Allergy Severe Hives Verified 01/28/25 20:52 Macrobid) sulfamethoxazole (From Allergy Severe Hives Verified 01/28/25 20:52 Bactrim) trimethoprim (From Bactrim) Allergy Severe Hives Verified 01/28/25 20:52 chicken derived Allergy Intermediate Numbness Verified 01/28/25 20:52 Penicillins AdvReac Mild Vomiting Verified 01/28/25 20:52 Procedure Insertion date: 01/29/25 Insertion time: 08:00 Prep/Local: 1% lidocaine (Chloraprep) Interspace: L3-4 Patient position: sitting Needle: 18 gauge Hustead (27g Pencan for DPE) Loss of resistance with: saline WILFRIDO at (cm): 5 Catheter placed at SKIN (cm): 13 Catheter in SPACE (cm): 8 Insertion: No CSF, No Blood, No Paresthesia with insertion, No Paresthesia with injection and No Test dose reaction Initial Medications TEST DOSE time: 08:02 TEST DOSE: 1.5% lidocaine with epinephrine 1:200k (mL): 3 BOLUS DOSE time: 08:03 BOLUS DOSE (mL): 2 BOLUS DOSE med: other (Same as test dose) Infusion INFUSION: 0.125% bupivacaine and with fentanyl 2 mcg/mL Initial rate (mL/hr): 8 Subsequent interventions: Epidural infusion started at 08:15. Pt reports contraction pain now just 3/10 pressure with contractions, down from 9/10. Able to move BLE. Tramaine 14:00 - Pt 9.5 cm. Reports some mild discomfort with contractions and has pushed PCEA x 2 recently. Moving BLE. Increased pump rate to 10 ml/hr. Bolused from epidural infusion 5 ml. Tramaine 16:59 - called for failure to progress. Epidural infusion stopped. Tramaine Post-procedure Anesthesia date START: 01/29/25 Anesthesia time START: 07:53 Anesthesia date END: 01/29/25 Anesthesia time END: 16:59 Post-procedure Anesthesia Assessment: Yes CV function: HR/BP stable, Yes Resp function: RR/sat/airway adequate, Yes Post-op hydration adequate, Yes Pain control adequate, Yes Nausea & vomiting absent, Yes Temperature > 36 C, Yes Mental status appropriate and No Anesthesia complications
--- NOTE | 2025-01-29 09:04 | PM.OBPNLAB ---
Date/Time Date Patient Seen: 01/29/25 Time Patient Seen: 09:04 Pain Control Pain control: epidural Pelvic Exam Dilation (cm): 8 Effacement (%): 90 station: -3 Amniotic membrane status: Bulging Comments: Bloody show Contractions Contractions on admission: regular Pitocin rate (mU/min): 10 Contraction pattern: Regular Contraction intensity: Moderate Status status: Category l Monitor Accelerations: Present Monitor Decelerations: Absent Monitor Variability: Moderate Assessment and Plan Assessment: active labor Plan: continuous present management Comments: AROM of forebag performed. Patient tolerated well. Expect .
[2025-01-29] MEDS: LACTATED RINGERS 1,000 ML 999 ML IV (11:29)
[2025-01-29] MEDS: ONDANSETRON 4 MG/2 ML INJ IV (11:39)
[2025-01-29] MEDS: diphenhydrAMINE 25 MG TABLET 50 MG PO (13:18)
[2025-01-29] MEDS: FENT 2MCG/ML BUPIV 0.125% EPI 200 MCG/100 ML PLAST..BAG 8 MCG EPIDURAL (14:06)
--- NOTE | 2025-01-29 16:31 | PM.OBPNLAB ---
Date/Time Date Patient Seen: 01/29/25 Time Patient Seen: 16:31 Pain Control Pain control: epidural Pelvic Exam Dilation (cm): 9 Effacement (%): 90 station: 0 Amniotic membrane status: Ruptured Contractions Contractions on admission: none Pitocin rate (mU/min): 16 Contraction pattern: Regular Contraction phase: Contraction Contraction intensity: Strong/Firm Status status: Category l Heart Rate Baseline: 120 Monitor Accelerations: Present Monitor Decelerations: Absent Monitor Variability: Moderate Assessment and Plan Comments: 24 yo at 38w3d admitted for PROM. She progressed quickly to 8cm but since has made very little change. ROm this AM around 9am then slow progress to 9cm. Has been 9cm with a thick anterior lip for 5 hours. Despite attempts to rotate head, position changes and reduce ant lip, no change has been noted for hour. No descent or additional dilation. Decision made to move to CS due to failure to progress. - Clindamycin 900 + Gent 5mg/kg for surgical ppx due to severe reaction to PCN and cephalosporins - Azithromycin for ROM - Vaginal prep due to ROM - pillow in OR for risk of impacted head - Epidural in place, anesthesia aware counseling: It was explained to the patient that a section is a surgery to deliver the baby through an incision in the abdominal wall and uterus.? All procedures can be associated with risk and unforeseen complications, which can be immediate or delayed.? Risks and complications of section include, but are not limited to:? infection of the uterus, pelvic organs, or skin; inadvertent injury to internal organs such as the bowel, bladder, or possibly even the baby; blood loss, transfusion, and/or life-threatening hemorrhage requiring hysterectomy; blood clots in the legs, pelvic organs, or lungs; adverse reaction to medications or anesthesia during surgery; development of placenta accreta spectrum in a subsequent ; and increased risk of section in a subsequent .
[2025-01-29] MEDS: AZITHROMYCIN 500 MG in DEXTROSE 5% IN WATER 250 ML 250 MG IV (17:07)
[2025-01-29] MEDS: GENTAMICIN 400 MG in SODIUM CHLORIDE 0.9% 100 ML 110 MG IV (17:27)
[2025-01-29] MEDS: TRANEXAMIC ACID 1,000 MG in SODIUM CHLORIDE 0.9% 100 ML 600 MG IV (17:38)
[2025-01-29] MEDS: ACETAMINOPHEN IV 1,000 MG/100 ML VIAL 400 MG IV (17:45)
--- NOTE | 2025-01-29 17:47 | SUR.OPER ---
Supine on padded OR bed, head on pillow, arms secured on padded arm boards at <90 degrees abduction, legs uncrossed, safety belt at thigh, tape over blanket over lower legs.
[2025-01-29] MEDS: CLINDAMYCIN 900 MG/50 ML PIGGYBACK 50 MG IV (17:50)
[2025-01-29 18:24] VITALS: BP 109/72; PULSE 90; RESP 16; O2SAT 97
--- NOTE | 2025-01-29 18:26 | PM.OBCS.1 ---
Operative Date/Time/Diagnoses Date of procedure: 01/29/25 Time of procedure: 17:31 Pre-op diagnosis: Failure to progress Post-op diagnosis: same Procedure & Clinicians Procedure: Primary Low trasnverse Same procedure(s) as scheduled: Yes Indications: Failure to progress Surgeon: Rafaela Molina Click Yes if Unassisted: No Credit Risk Specialist: Karie Hedrick Reason for Credit Risk Specialist: Credit Risk Specialist required for the safe, effective, and timely completion of this surgery. The assistant district attorney was necessary to retract upon entry into the abdomen and uterus. Assisted with delivery of the infant with fundal pressure. Assisted with closure with retraction, holding suture, and closure of the contralateral fascia. Anesthesia Type: General and Epidural Operative Notes Findings: Normal uterus, ovaries, and tubes Closure Type: primary Specimen(s): cord blood and cord pH Intraoperative meds administered: Ketorolac, Methergine, Pitocin and Tranexamic acid Applied: Catheter Estimated Blood Loss (mL): 350 Blood products transfused: none Procedure in detail: OPERATIVE COURSE: The patient was taken to the operating room where epidural anesthesia was tested but found to be inadequate. Despite multiple efforts, pt continued to feel pain so decision made to convert to general anesthesia. She was given CLindamycin, gentamicin and Azithromycin for surgical ppx and for ROM 2/2 severe PCN allergy. pillow was placed with 180cc of sterile saline. She was then prepared and draped in the normal sterile fashion in the dorsal supine position with a leftward tilt. General anesthesia was initiated. Procedure start time 17:31. A Pfannensteil skin incision was then made with the scalpel and carried through to the underlying layer of fascia with the scalpel. The fascia was incised in the midline and the incision extended laterally bluntly. The rectus muscles were then in the midline, and the peritoneum was identified and entered bluntly. The peritoneal incision was then extended with good visualization of the bladder. The bladder blade was then reinserted and the lower uterine segment incised in a transverse fashion with the scalpel, with the surgical oncologist providing suction. The uterine incision was then extended superolaterally by pulling superolaterally on both sides. Membranes were ruptured and fluid was clear. The bladder blade was removed the infant's head was delivered out of direct OP position and delivered atraumatically, with fundal pressure by the surgical oncologist. The cord was clamped and cut immediately after delivery due to general anesthesia. The infant was handed off to the waiting nursing staff. Cord blood was collected. Time of delivery was 17:32. APGARS were 1, 4 and 9 at one, five and ten minutes respectively. He did require PPV, towel stimulation and deep suction. The placenta was then delivered with gentle cord traction. The uterus was then exteriorized and cleared of all clots and debris. The uterine incision was repaired with 0 Vicryl in a running, locked fashion. A second layer of the same suture was used to obtain excellent hemostasis. Due to poor uterine tone, methergine 0.2mg and 1g TXA were administered The uterus was returned to the abdomen. The gutters were cleared of all clots. Hysterotomy was investigated and found to be hemostatic. The fascia was reapproximated with 0 Vicryl in a running fashion. The subcutaneous tissue was reapproximated with 3-0 vicryl. The skin was closed with 4-0 monocryl. The surgical oncologist helped with retraction during closures. SPONGE AND NEEDLE COUNTS: Correct x3. DRESSING: Aquacel ANTICOAGULATION: SCDs applied prior to Surgery Preop antibiotics given (see MAR). The patient was taken to recovery room having tolerated procedure well. Complications: none Post-operative Condition: stable Disposition: PACU Aftercare: routine postop
[2025-01-29 18:32] VITALS: BP 110/75; PULSE 80; RESP 14; O2SAT 97
[2025-01-29 18:34] VITALS: BP 107/71; PULSE 83; RESP 16; TEMP 37.1; O2SAT 96
[2025-01-29 18:35] VITALS: BP 118/81; PULSE 81; RESP 15; O2SAT 97
[2025-01-29 18:45] VITALS: BP 115/79; PULSE 97; RESP 16; TEMP 36.9; O2SAT 97
[2025-01-30] MEDS: KETOROLAC 30 MG/ML VIAL IV ×3 (00:09→12:40)
[2025-01-30] MEDS: ACETAMINOPHEN 325 MG TABLET 650 MG PO ×4 (01:46→20:59)
[2025-01-30 08:01] LABS: Add Manual Diff / Slide Review NO; Hematocrit 34.6 % (36-46); Hemoglobin 11.9 g/dL (12.0-16.0); Lymphocytes Absolute Auto 1600 /uL (1100-4500); Mean Corpuscular HGB Conc 34.4 % (30-36); Mean Corpuscular Hemoglobin 30.7 PG (26-34); Mean Corpuscular Volume 89.4 fL (80-100); Platelet Count 160 X10^3/uL (150-400)
[2025-01-30] MEDS: IBUPROFEN 600 MG TABLET PO (18:20)
--- NOTE | 2025-01-30 19:39 | PM.OBPN.1 ---
Subjective - OB Subjective Patient comments: pain well controlled and tolerating diet baby status: doing well feeding status: breast and bottle feeding Narrative: Patient reports she is doing well postoperatively. Pain is well controlled. Has been up and ambulating a bit today. Voiding spontaneously. No nausea/vomiting. Date Patient Seen: 01/30/25 Time Patient Seen: 19:40 Interval history: POD 1 following primary section for second stage arrest, under general anesthesia due to inadequate coverage with epidural. Exam Vital Signs (past 8 hours): BP 107/68, P: 87, RR: 17, T: 97.9, O2 93-96% on RA Const General: comfortable, well developed, well groomed and No acute distress Orientation: alert, awake and oriented x3 HENMT Head: normocephalic and atraumatic Eyes Conjunctivae: conjunctivae normal Neck Neck: full ROM and No tender Resp Effort & Inspection: normal respiratory effort and no respiratory distress Cardio Rate: regular rate Rhythm: regular rhythm GI Inspection: incision (dressing is clean and dry, no surrounding erythema) Palpation: soft Other: Fundus firm below umbilicus Skin General: no rashes or lesions noted Neuro General: patient alert, patient awake and patient oriented x3 Extrem Right lower extremity: normal to inspection; no edema Left lower extremity: normal to inspection; no edema Psych Appearance: grossly normal Speech and Movement: speech and movement normal Mood: congruent mood Affect: normal affect Objective Labs 01/30/25 07:34 Labs: Laboratory Results - last 24 hr 01/30/25 07:34 WBC 24.3 H D RBC 3.88 L Hgb 11.9 L Hct 34.6 L MCV 89.4 MCH 30.7 MCHC 34.4 RDW 13.5 Plt Count 160 Neut % (Auto) 84.2 H Lymph % (Auto) 6.7 L [place] % (Auto) 8.7 Eos % (Auto) 0.1 L Baso % (Auto) 0.3 Neut # (Auto) 02578 H Lymph # (Auto) 1600 [place] # (Auto) 2100 H Eos # (Auto) 0 Baso # (Auto) 100 Assessment & Plan Plan day: 1 plan OB: routine postop care
[2025-01-31] MEDS: IBUPROFEN 600 MG TABLET PO ×3 (00:24→14:31)
[2025-01-31] MEDS: ACETAMINOPHEN 325 MG TABLET 650 MG PO ×2 (02:58→14:31)
[2025-01-31] MEDS: PRENATAL VIT,CALC/IRON/FOLIC 1 TABLET 1 TAB PO (08:46)
--- NOTE | 2025-01-31 13:37 | PM.OBDS.1 ---
Discharge Providers Provider Date of admission: 01/28/25 18:03 Discharge Date: 01/31/25 Primary care physician: Amanda Anthony MD Consults: 01/28/25 19:02 Consult to Anesthesiology Urgent Comment: Consulting Provider: Caity Hadley Reason for consultation: Epidural 01/29/25 18:56 Consult to Construction Rep Routine Comment: Discharge provider: Rafaela Molina MD Summary Hospital Course Date Patient Seen: 01/31/25 Time Patient Seen: 13:00 Hospital Course: 24 yo at 38w3d admitted for PROM. She progressed quickly to 8cm but then made very little change. Pt was 9cm with a thick anterior lip for 5 hours. Despite attempts to rotate head, position changes and reduce ant lip, no change has been noted for hour. No descent or additional dilation. Decision made to move to CS due to failure to progress. CS was completed without difficulty. Time of delivery was 17:32. APGARS were 1, 4 and 9 at one, five and ten minutes respectively. He did require PPV, towel stimulation and deep suction. Due to poor uterine tone, methergine 0.2mg and 1g TXA were administered. CS was otherwise uncomplicated. PP she is ambulating, voiding and passing gas. Pain well controlled on oral medications. She is and has met with . Dressing clean and dry Peripartum Data Infant Delivery Method: Section complications: none Time Spent with Patient Time attestation: Total time spent providing and/or coordinating discharge services: Objective Labs 01/30/25 07:34 Exam Vital Signs (past 8 hours): Oxygen Delivery Method Room Air Narrative Exam Narrative: Gen: well appearing, NAD Skin: no rashes or pallor Abd: appropriate post-op tenderness, fundus firm below Umbilicus. Dressing clean and dry MSK: scant edema Discharge Plan Discharge Plan Patient Disposition: Home Discharge orders & Medications Prescriptions: New oxycodone 5 mg Tablet 5 mg PO Q4H PRN (Reason: Pain, Moderate (4-6)) Qty: 15 0RF cholecalciferol (vitamin D3) [Baby Vitamin D3] 10 mcg/drop (400 unit/drop) drops 400 unit PO DAILY Qty: 9.2 2RF cyclobenzaprine 5 mg tablet 5 mg PO TID PRN (Reason: muscle spasm) Qty: 20 0RF Continued duloxetine 20 mg capsule,delayed release(DR/EC) 20 mg PO DAILY Qty: 90 0RF RSVPreF3 antigen-AS01E (PF) 120 mcg/0.5 mL suspension for reconstitution 0.5 ml IM ONCE Qty: 1 0RF vit-ferrous sulfat-FA 27 mg iron- 0.8 mg tablet 1 tab PO Follow up/Referrals: Rafaela Molina MD [Physician, Family Practice] - 02/07/25 1:30 pm Amanda Anthony MD [Primary Care Provider, [facility]] Visit Report/Discharge Packet Stand Alone Forms: Discharge: Care, Patient Portal/API, Stroke Signs & Symptoms Discharge Data Primary Care Provider: Amanda Anthony Discharges patient from system. Discharge Date/Time: 01/31/25 15:05
[2025-01-31] MEDS: MEASLES,MUMPS,RUBELLA VACC/PF 0.5 ML VIAL SUBCUT (14:32)
[2025-01-31 15:21] VITALS: BP 115/79; PULSE 97; RESP 16; TEMP 36.9
== END 2025-01-31 15:05 | disposition home or self-care (01) | DRG 540 ==
PROVIDERS: Family Medicine; Admitting Provider Student in an Organized Health Care Education/Training Program; PCP Student in an Organized Health Care Education/Training Program; Referring Provider Student in an Organized Health Care Education/Training Program; Visit Provider Student in an Organized Health Care Education/Training Program
PROC: (CPT 59514; principal; 2025-01-29 20:30)
DX: O64.8XX0 Obstructed labor due to other malposition and malpresentation, not applicable or unspecified (principal); Z3A.38 38 weeks gestation of pregnancy; Z37.0 Single live birth
CPT/HCPCS: 36415; 59050; 59200; 85025; 86850; 86900; 86901; G0379; J0131; J0330; J1100; J1885; J2250; J2274; J2405; J2590; J2704; J7050; J7060; J7120

== ENCOUNTER → 2025-02-05 11:25 | Outpatient (CLI) | payer OTHER, SELFPAY ==
[2025-02-05 12:22] LABS: Add Manual Diff / Slide Review NO; Hematocrit 37.6 % (36-46); Hemoglobin 12.5 g/dL (12.0-16.0); Lymphocytes Absolute Auto 900 /uL (1100-4500); Mean Corpuscular HGB Conc 33.3 % (30-36); Mean Corpuscular Hemoglobin 29.9 PG (26-34); Mean Corpuscular Volume 89.7 fL (80-100); Platelet Count 362 X10^3/uL (150-400)
== END ==
PROVIDERS: PCP Student in an Organized Health Care Education/Training Program; Referring Provider Family Medicine; Visit Provider Family Medicine
DX: O86.4 Pyrexia of unknown origin following delivery (principal)
CPT/HCPCS: 36415; 85025

== ENCOUNTER 2025-02-06 22:08 | Inpatient (IN) | payer OTHER, SELFPAY ==
[2025-02-05] VITALS (8 sets, daily range): BP systolic 109–118; BP diastolic 66–75; PULSE 109–111; RESP 18–19; TEMP 36.8–39.6; O2SAT 98–99; BMI 26.2
--- NOTE | 2025-02-05 13:19 | DI.CT.S_ITS ---
PROCEDURE: CT ABDOMEN PELVIS W CON INDICATIONS: postoperative fever, abdominal pain, possible seroma/hematom TECHNIQUE: After the administration of intravenous contrast, axial sections acquired from the lung bases to the pubic symphysis. Coronal and sagittal reformats were performed. For radiation dose reduction, the following was used: automated exposure control, adjustment of mA and/or kV according to patient size. COMPARISON: [facility], , OB FOLLOW UP, 12/22/2024, 11:09. FINDINGS: Image quality: Diagnostic. Lower Chest: No significant findings. ABDOMEN: Liver: No solid mass. Gallbladder: No radiopaque gallstones or wall thickening. Biliary ducts: No biliary dilation. Pancreas: No ductal dilation. Spleen: Mild splenomegaly, no discrete splenic lesion. Adrenal Glands: No adrenal nodules. Kidneys and Ureters: No obstructing renal stones . Mild bilateral hydronephrosis and hydroureter extending to the level of enlarged uterus without ureteral stones seen. No solid mass. No complex renal cystic lesion which requires follow up. Stomach and Bowel: There is no bowel obstruction. No abnormal bowel wall thickening or mesenteric fat stranding. No abscess collection. Mild fecal stasis is seen in the colon. Peritoneum: No abnormal intraperitoneal fluid. No free air. Ventral Wall: No significant ventral hernia. There is fluid collection in right anterior lower abdominal/pelvic wall measures 7 x 3.3 cm in size with air-fluid level series 2, image 121. Abdominal Nodes: No retroperitoneal or mesenteric adenopathy by size criteria. Vessels: Aorta and inferior vena cava are normal in size. PELVIS: Pelvic Organs: Bulky appearing uterus. Bladder: No bladder wall thickening, accounting for underdistention. Pelvic Nodes: No enlarged lymph nodes. Miscellaneous: No inguinal hernias are seen. Bones: No aggressive osseous abnormality. IMPRESSION: 1. Finding is suggestive of postsurgical seroma in right anterior lower abdominal/pelvic wall as above. Clinical correlation and follow-up is recommended. 2. Normal enlarged uterus. No bowel obstruction or abnormal bowel wall thickening. No free fluid or free air. 3. Bilateral [id number] hydronephrosis and hydroureter extending to the level of enlarged uterus likely related to distal ureteral compression from enlarged uterus. No obstructing stones are seen. Dictated by: Ricardo Stein M.D. on 02/05/2025 at 15:18 Approved by: Ricardo Stein M.D. on 02/05/2025 at 15:21
--- NOTE | 2025-02-05 13:22 | PM.HP.IH.1 ---
History of Present Illness History of Present Illness Date Patient Seen: 02/05/25 Time Patient Seen: 12:30 Chief complaint: NST Narrative: Pt is a 24yo POD #7 s/p primary who presented with fever and right sided incisional pain. The pt reports that on Friday she started to notice increased discomfort on the right side of her incision. Then yesterday, she started feeling generally unwell. She has been taking Tylenol and Ibuprofen alternating around the clock, but despite this her temperature was up to 100F at home. She denies any more generalized abdominal pain. She denies chest pain, SOB, cough, congestion, dysuria, breast pain/tenderness, constipation, diarrhea. She is excusively pumping to feed her baby. The pt presented to the hospital where her initial temperature was normal, however it then continued to rise to > 103F. [facility] Medical History Breech presentation Rubella non-immune status, antepartum Ovarian cyst Surgical History History of tympanostomy History of dilation and curettage Hx of breast reduction, elective Family History Grandmother Hypothyroidism Sister Depression Grandfather Brain cancer Social History marital status: unmarried,living together number of children: 0 household members: significant other lives independently: Yes caregiver/support person: No housing: house pets and animals: Yes (dogs) education level: college (some college) 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 ([employer]) current occupational exposures/hazards: No special steve needs: No travel history: over 6 months ago seatbelt use: always water heater temp set < 120 deg: Yes working smoke detector in home: Yes fire extinguisher in home: Yes carbon monox detector in home: Yes firearms in home: Yes firearms unloaded and locked: Yes do you feel safe at home: Yes Tobacco: How many years used: 3 (off and on) Smokeless tobacco user: other quit status: has quit before second hand exposure: No alcohol intake: former (~2-3/week when not ) substance use type: does not use during the past year weight has: decreased > 10 lbs (intentional) well-balanced diet: daily or most days daily servings fruits/ve-4 caffeine: Yes (single cup coffee) Type(s) of exercise: walking Meds Home Medications and Allergies Home Medications ?Medication ?Instructions ?Recorded ?Confirmed ?Type vitamin-ferrous sulfate 1 tab PO 11/29/24 12/02/24 History 27 mg iron-folic acid 0.8 mg tablet duloxetine 20 mg capsule,delayed 20 mg PO DAILY #90 caps 12/02/24 01/28/25 Rx release RSVPreF3 antigen-AS01E 0.5 ml IM ONCE #1 ea 12/13/24 01/28/25 Rx adjuvant(PF) 120 mcg/0.5 mL IM suspension, kit cholecalciferol (vitamin D3) 10 400 unit PO DAILY #9.2 mL 01/31/25 Rx mcg/drop (400 unit/drop) oral drops (Baby Vitamin D3) cyclobenzaprine 5 mg tablet 5 mg PO TID PRN muscle spasm #20 01/31/25 Rx tabs oxycodone 5 mg tablet 5 mg PO Q4H PRN Pain, Moderate 01/31/25 Rx (4-6) #15 tabs Allergies Allergy/AdvReac Type Severity Reaction Status Date / Time nitrofurantoin (From Allergy Severe Hives Verified 01/28/25 20:52 Macrobid) sulfamethoxazole (From Allergy Severe Hives Verified 01/28/25 20:52 Bactrim) trimethoprim (From Bactrim) Allergy Severe Hives Verified 01/28/25 20:52 chicken derived Allergy Intermediate Numbness Verified 01/28/25 20:52 Penicillins AdvReac Mild Vomiting Verified 01/28/25 20:52 Exam Narrative Exam Narrative: Gen: NAD, appears slightly pale, speaking easily in complete sentences HEENT: normocephalic, atraumatic, sclera clear CV: tachycardic, regular rhythm, no murmurs Resp: clear to auscultation bilaterally Abd: soft, uterus firm and well below umbilicus without tenderness, incision c/d/i with slight surrounding erythema on right side of incision (however, erythematous area in distribution of prior bandage, removed today), tender to palpation on right side of incision with discrete firm palpable region approx 5x3cm; left side of incision nontender without any erythema Ext: no edema Neuro: no gross deficits Objective Labs 02/05/25 14:21 Assessment & Plan Assessment & Plan narrative: Pt is a 24yo POD #7 s/p primary who presented with fever and right sided incisional pain. Pt with confirmed fever, tachycardia. Abdomen concerning for large hematoma, seroma, or potentially abscess. No evidence of endometritis with nontender uterus, no dysuria to suggest UTI. No respiratory symptoms or SOB without hypoxia - unlikely PE. Most likely fever from cellulitis/fluid collection. 1) Postoperative infection: No evidence of sepsis. Penicillin allergic. Potential mild cellulitis of the skin, however difficult to say with bandage having just been removed. Most likely due to subcutaneous collection. - 1L NS bolus - mIVF at 100cc/hr - U/A - CT abd/pelvis to evaluate potential hematoma/seroma/abscess - Vancomycin dosing per pharmacy - Gentamicin 5mg/kg q24hrs 2) - Continue vitamin - Pumping support DVT ppx: Diet: General Code: Full Dispo: Pending afebrile x 24hrs. Time-Based Coding :: 90 spent with patient and on the chart (including review of chart, obtaining history, exam, reviewing outside data, placing orders, documenting exam and treatment plan, and counseling patient) on 02/05/25. PROFEE Regional Business Manager Document charge(s): Yes Charge Codes Initial inpatient/observation care: [id number]
[2025-02-05] MEDS: ACETAMINOPHEN 325 MG TABLET 650 MG PO ×2 (13:51→20:04)
[2025-02-05] MEDS: IBUPROFEN 600 MG TABLET PO ×2 (13:52→20:03)
[2025-02-05 14:52] LABS: Alanine Aminotransferase 50 IU/L (<35); Albumin 3.6 g/dL (3.5-5.0); Albumin Globulin Ratio 1.2 (1.0-2.8); Alkaline Phosphatase 108 U/L (38-126); Blood Urea Nitrogen 11 mg/dL (7-17); Calcium 8.4 mg/dL (8.4-10.2); Carbon Dioxide 21 mmol/L (22-32); Chloride 104 mmol/L (98-107); Estimated Glomerular Filt Rate > 60 mL/min (>60); Globulin 3.1 g/dL (1.7-4.1); Glucose 122 mg/dL (70-99); HEMOLYSIS < 15 (0-50); Lactate (Lactic Acid) 1.0 mmol/L (0.7-2.1); Potassium 3.9 mmol/L (3.4-5.1); Sodium 134 mmol/L (137-145); Total Protein 6.7 g/dL (6.3-8.2)
[2025-02-05 15:08] LABS: Procalcitonin 0.083 ng/mL (<0.5)
[2025-02-05] MEDS: SODIUM CHLORIDE 0.9% 1,000 ML 1000 ML IV (15:12)
[2025-02-05] MEDS: GENTAMICIN IV (16:16)
[2025-02-05] MEDS: SODIUM CHLORIDE 0.9% IV (16:16)
[2025-02-05] MEDS: VANCOMYCIN 1,000 MG/200 ML PIGGYBACK 200 MG IV (17:19)
[2025-02-05] MEDS: SODIUM CHLORIDE 0.9% 1,000 ML 100 ML IV (17:19)
--- NOTE | 2025-02-05 20:42 | PC.NURSE ---
Patient c/o chills and requests a warm blanket. RN repeated oral temp. see vitals
[2025-02-06] VITALS (22 sets, daily range): BP systolic 79–114; BP diastolic 40–70; PULSE 80–117; RESP 12–26; TEMP 36–37.8; O2SAT 93–99
[2025-02-06] MEDS: ACETAMINOPHEN 325 MG TABLET 650 MG PO ×4 (02:06→20:42)
[2025-02-06] MEDS: SODIUM CHLORIDE 0.9% 1,000 ML 100 ML IV ×3 (02:07→19:02)
[2025-02-06] MEDS: IBUPROFEN 600 MG TABLET PO ×3 (02:07→19:03)
[2025-02-06] MEDS: VANCOMYCIN 1,000 MG/200 ML PIGGYBACK 200 MG IV ×2 (05:20→19:02)
[2025-02-06 05:31] LABS: Add Manual Diff / Slide Review NO; Hematocrit 31.4 % (36-46); Hemoglobin 10.7 g/dL (12.0-16.0); Lymphocytes Absolute Auto 1100 /uL (1100-4500); Mean Corpuscular HGB Conc 34.0 % (30-36); Mean Corpuscular Hemoglobin 30.3 PG (26-34); Mean Corpuscular Volume 89.1 fL (80-100); Platelet Count 299 X10^3/uL (150-400)
[2025-02-06 05:45] LABS: Alanine Aminotransferase 35 IU/L (<35); Albumin 3.0 g/dL (3.5-5.0); Albumin Globulin Ratio 1.0 (1.0-2.8); Alkaline Phosphatase 107 U/L (38-126); Blood Urea Nitrogen 6 mg/dL (7-17); Calcium 7.9 mg/dL (8.4-10.2); Carbon Dioxide 20 mmol/L (22-32); Chloride 112 mmol/L (98-107); Estimated Glomerular Filt Rate > 60 mL/min (>60); Globulin 3.0 g/dL (1.7-4.1); Glucose 130 mg/dL (70-99); HEMOLYSIS < 15 (0-50); Potassium 3.4 mmol/L (3.4-5.1); Sodium 140 mmol/L (137-145); Total Protein 6.0 g/dL (6.3-8.2)
[2025-02-06] MEDS: PRENATAL VIT,CALC/IRON/FOLIC 1 TABLET 1 TAB PO (08:33)
--- NOTE | 2025-02-06 12:10 | PC.NURSE ---
pt called out asking for help. on entering, pt c/o foul smelling purulent green drainage coming from right side of section incision. large amount of drainage noted on pt's gown, linens, and in hands. Dr. Thomas pulled into room immediately. She obtained cultures of the drainage and we helped clean the pt and put a pressure dressing on the outside to absorb drainage. Dr. Thomas then called Dr. Saez to come to take pt to OR and requested OR crew be called in to open and clean out wound.
--- NOTE | 2025-02-06 12:19 | P.PN_ITS ---
Subjective Subjective Interval history: This morning the pt reports ongoing significant pain on the right side of her incision. She has not had a fever since her Tylenol and Ibupofen were switched to alternating dosing, but she can still sense her temperature rising right before next dosing is due. She denies any chest pain, SOB, dysuria. Exam Vital Signs (past 8 hours): - 02/06/25 06:26 02/06/25 08:15 02/06/25 11:15 Temperature 97.2 F L 99.6 F 99.8 F H Pulse Rate 104 H 114 H Respiratory Rate 18 20 Blood Pressure 109/66 104/66 Pulse Oximetry 97 99 02/06/25 11:17 Temperature 99.8 F H Pulse Rate Respiratory Rate Blood Pressure Pulse Oximetry Narrative Exam Narrative: Gen: NAD, sitting comfortably in bed, appears well CV: RRR, no murmurs Resp: clear to auscultation bilaterally, very diminished bowel sounds, tender over right side of incision with area of induration expanded from yesterday and erythema extending to the left side as well Ext: no edema Objective Labs 02/06/25 05:10 02/06/25 05:10 Labs: Laboratory Results - last 24 hr 02/05/25 02/06/25 14:21 05:10 WBC 15.7 H RBC 3.53 L Hgb 10.7 L Hct 31.4 L MCV 89.1 MCH 30.3 MCHC 34.0 RDW 13.3 Plt Count 299 Neut % (Auto) 82.8 H Lymph % (Auto) 7.3 L [place] % (Auto) 9.2 Eos % (Auto) 0.3 L Baso % (Auto) 0.4 Neut # (Auto) 07272 H Lymph # (Auto) 1100 [place] # (Auto) 1400 H Eos # (Auto) 0 Baso # (Auto) 100 Sodium 134 L 140 Potassium 3.9 3.4 Chloride 104 112 H Carbon Dioxide 21 L 20 L BUN 11 6 L Creatinine 0.50 L 0.48 L Estimated GFR > 60 > 60 BUN/Creatinine Ratio 22.0 12.5 Glucose 122 H 130 H Lactate 1.0 Calcium 8.4 7.9 L Total Bilirubin 0.3 0.3 AST 25 21 ALT 50 H 35 H Alkaline Phosphatase 108 107 Total Protein 6.7 6.0 L Albumin 3.6 3.0 L Globulin 3.1 3.0 Albumin/Globulin Ratio 1.2 1.0 Procalcitonin 0.083 Vancomycin Trough < 5.0 L PFSH Medical History Breech presentation Rubella non-immune status, antepartum Ovarian cyst Surgical History History of tympanostomy History of dilation and curettage Hx of breast reduction, elective Family History Grandmother Hypothyroidism Sister Depression Grandfather Brain cancer Social History marital status: unmarried,living together number of children: 0 household members: significant other lives independently: Yes caregiver/support person: No housing: house pets and animals: Yes (dogs) education level: college (some college) 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 ([employer]) current occupational exposures/hazards: No special steve needs: No travel history: over 6 months ago seatbelt use: always water heater temp set < 120 deg: Yes working smoke detector in home: Yes fire extinguisher in home: Yes carbon monox detector in home: Yes firearms in home: Yes firearms unloaded and locked: Yes do you feel safe at home: Yes Smoking Status: Never smoker Tobacco: How many years used: 3 (off and on) Smokeless tobacco user: other quit status: has quit before second hand exposure: No alcohol intake: former substance use type: does not use during the past year weight has: decreased > 10 lbs (intentional) well-balanced diet: daily or most days daily servings fruits/ve-4 caffeine: Yes (single cup coffee) Type(s) of exercise: walking Assessment & Plan Assessment & Plan narrative: Pt is a 24yo POD #7 s/p primary who presented with fever and right sided incisional pain. Pt with confirmed fever, tachycardia. Abdomen concerning for large hematoma, seroma, or potentially abscess. No evidence of endometritis with nontender uterus, no dysuria to suggest UTI. No respiratory symptoms or SOB without hypoxia - unlikely PE. Most likely fever from cellulitis/fluid collection. 1) Postoperative subcutaneous abscess: Called back to bedside after initial evaluation, with small opening in c/s incision present and draining copious purulent fluid. - Cultures collected - Discussed care with Dr Saez. Pt will need I&D with washout in the OR. Plan to leave incision open and allow for healing by secondary intention with wound vac after surgery. Discussed risks of the surgery with the pt including bleeding, worsening infection. Pt expressed understanding and consent was signed. - Continue Vancomycin dosing per pharmacy - Continue Gentamicin 5mg/kg q24hrs 2) - Continue vitamin - Pumping support DVT ppx: Lovenox postoperatively Diet: NPO pending surgery Code: Full Dispo: Pending afebrile x 24hrs. At least one additional midnight. Time-Based Coding :: 60 spent with patient and on the chart (including review of chart, obtaining history, exam, reviewing outside data, placing orders, documenting exam and treatment plan, and counseling patient) on 02/06/25. Quality VTE Deep Vein Thrombosis/Pulmonary Embolism Present on Admission: No [facility] PROFEE Licensed Certified Orthotist Document charge(s): Yes Charge Codes Subsequent inpatient/observation care: [id number]
--- NOTE | 2025-02-06 13:00 | PC.NURSE ---
It was decided betweenthe MECHANICAL DEVELOPER PROVER and Dr. Saez that it would be safer to wait until 8hrs after pt has eaten to go to the OR and that it wasn't an emergent procedure. OR crew, Dr. Saez, and MECHANICAL DEVELOPER PROVER plan to come back at 1630 to prepare for 1700 OR time.
--- NOTE | 2025-02-06 13:27 | PM.PREOP ---
Pre-operative Note COVID-19 COVID-19 status: Not tested Interval Note History & Physical reviewed/Exam performed by Physician: Yes Changes to H&P: No ASA Class (for procedural sedation): II
--- NOTE | 2025-02-06 13:27 | PM.CN.IH.1 ---
History of Present Illness Consult details Date Patient Seen: 02/06/25 Time Patient Seen: 13:28 Chief complaint: post op wound infection Reason for consult: Post op wound infection now draining and skin separation Requesting provider: Rosemary Thomas Narrative: Patient is a 24yo s/p PLTCS on 01/29/25 at 38wks due to arrest of descent at 9cm. She had an uncomplicated and discharged home on POD1. patient was doing well until yesterday she started feeling unwell and presented to the hospital with fevers and erythema/tenderness on the right lateral side of her incision. During triage evaluation she was noted to have a temp- 103.5 F and tachycardic. Decision was made to admit to the hospital for IV antibiotics. Due to multiple allergies she was started on IV Vanc and Gentamycin. A CT abdomen/pelvis was performed and noted a 7cm x 3cm fluid collection in the subcutaneous adipose tissue. No evidence of fascial dehiscience or deeper collections in the intra abdominal cavity. Patient reports overall feeling better today then yesterday but today the wound opened and is draining purulent, malodorous fluid consistent with a postop abscess. Meds Home Medications and Allergies Home Medications ?Medication ?Instructions ?Recorded ?Confirmed ?Type vitamin-ferrous sulfate 1 tab PO 11/29/24 12/02/24 History 27 mg iron-folic acid 0.8 mg tablet duloxetine 20 mg capsule,delayed 20 mg PO DAILY #90 caps 12/02/24 01/28/25 Rx release RSVPreF3 antigen-AS01E 0.5 ml IM ONCE #1 ea 12/13/24 01/28/25 Rx adjuvant(PF) 120 mcg/0.5 mL IM suspension, kit cholecalciferol (vitamin D3) 10 400 unit PO DAILY #9.2 mL 01/31/25 Rx mcg/drop (400 unit/drop) oral drops (Baby Vitamin D3) cyclobenzaprine 5 mg tablet 5 mg PO TID PRN muscle spasm #20 01/31/25 Rx tabs oxycodone 5 mg tablet 5 mg PO Q4H PRN Pain, Moderate 01/31/25 Rx (4-6) #15 tabs Allergies Allergy/AdvReac Type Severity Reaction Status Date / Time nitrofurantoin (From Allergy Severe Hives Verified 01/28/25 20:52 Macrobid) sulfamethoxazole (From Allergy Severe Hives Verified 01/28/25 20:52 Bactrim) trimethoprim (From Bactrim) Allergy Severe Hives Verified 01/28/25 20:52 chicken derived Allergy Intermediate Numbness Verified 01/28/25 20:52 Penicillins AdvReac Mild Vomiting Verified 01/28/25 20:52 Review of Systems Constitutional Constitutional: Reports as per HPI Exam Vital Signs (past 8 hours): - 02/06/25 06:26 02/06/25 08:15 02/06/25 11:15 Temperature 97.2 F L 99.6 F 99.8 F H Pulse Rate 104 H 114 H Respiratory Rate 18 20 Blood Pressure 109/66 104/66 Pulse Oximetry 97 99 02/06/25 11:17 Temperature 99.8 F H Pulse Rate Respiratory Rate Blood Pressure Pulse Oximetry Narrative Exam Narrative: General- AAO x 3, NAD, resting comfortably - abdomen- soft, nondistended - incision-- area of drainage covered with a bandage, some surrounding cellulities notable, not exquistely tender on exam Objective Labs 02/06/25 05:10 02/06/25 05:10 Labs: Laboratory Results - last 24 hr 02/05/25 02/06/25 14:21 05:10 WBC 15.7 H RBC 3.53 L Hgb 10.7 L Hct 31.4 L MCV 89.1 MCH 30.3 MCHC 34.0 RDW 13.3 Plt Count 299 Neut % (Auto) 82.8 H Lymph % (Auto) 7.3 L Briscoe % (Auto) 9.2 Eos % (Auto) 0.3 L Baso % (Auto) 0.4 Neut # (Auto) 69049 H Lymph # (Auto) 1100 Briscoe # (Auto) 1400 H Eos # (Auto) 0 Baso # (Auto) 100 Sodium 134 L 140 Potassium 3.9 3.4 Chloride 104 112 H Carbon Dioxide 21 L 20 L BUN 11 6 L Creatinine 0.50 L 0.48 L Estimated GFR > 60 > 60 BUN/Creatinine Ratio 22.0 12.5 Glucose 122 H 130 H Lactate 1.0 Calcium 8.4 7.9 L Total Bilirubin 0.3 0.3 AST 25 21 ALT 50 H 35 H Alkaline Phosphatase 108 107 Total Protein 6.7 6.0 L Albumin 3.6 3.0 L Globulin 3.1 3.0 Albumin/Globulin Ratio 1.2 1.0 Procalcitonin 0.083 Vancomycin Trough < 5.0 L [facility] Medical History Breech presentation Rubella non-immune status, antepartum Ovarian cyst Surgical History History of tympanostomy History of dilation and curettage Hx of breast reduction, elective Family History Grandmother Hypothyroidism Sister Depression Grandfather Brain cancer Social History marital status: unmarried,living together number of children: 0 household members: significant other lives independently: Yes caregiver/support person: No housing: house pets and animals: Yes (dogs) education level: college (some college) 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 ([employer]) current occupational exposures/hazards: No special steve needs: No travel history: over 6 months ago Safety seatbelt use: always water heater temp set < 120 deg: Yes working smoke detector in home: Yes fire extinguisher in home: Yes carbon monox detector in home: Yes firearms in home: Yes firearms unloaded and locked: Yes do you feel safe at home: Yes Tobacco & Substance Use Smoking Status: Never smoker Tobacco: How many years used: 3 (off and on) Smokeless tobacco user: other quit status: has quit before second hand exposure: No alcohol intake: former substance use type: does not use Diet and Exercise during the past year weight has: decreased > 10 lbs (intentional) well-balanced diet: daily or most days daily servings fruits/ve-4 caffeine: Yes (single cup coffee) Type(s) of exercise: walking Assessment & Plan Assessment and plan (1) Superficial postoperative wound infection: Status: Acute (2) Post-operative wound abscess: Status: Acute Plan Patient is a 24yo s/p PLTCS for arrest of descent on 01/29/25 now with Post op wound infection. 1. Post op wound infection and superficial skin separation - CT abdomen/pelvis notes a 7cm x 3cm superficial abscess within the subcutaneous tissues - Now currently open and draining purulent, malodorous fluid-- collected for wound culture - Currently on IV vancomycin and Gentamycin overnight, currently afebrile >12 hours - Tmax- 103.2 F, Tlast- 100.4 at 0 on 02/05/25 - considering extensive drainage and wound cellulitis, recommend to proceed with a wound debridement and wash out and plan for wound vac placement post op for improved wound healing. - no evidence of fascial dehiscience on CT scan but will evaluate at time of surgery - reviewed risks of surgery including bleeding, pain, infection, injury to surrounding tissues. all questions answered-- patient desires to proceed with surgical wound debridement. - patient is hemodynamically stable and last ate at 0900, so will proceed to the OR at 1700 per anesthesia recommendation. 2. - baby in room with patient, partner present for support - pumping milk for baby Dispo- plan to proceed to OR, place wound vac with wound care evaluation tomorrow and planning for outpatient wound care, continue IV antibiotics until 24 hours afebrile then will transition to oral antiboitics and plan for discharge when >48hrs afebrile. Time-Based Coding :: [TOTAL MINUTES] spent with patient and on the chart (including review of chart, obtaining history, exam, reviewing outside data, placing orders, documenting exam and treatment plan, and counseling patient) on [DATE]. PROFEE Charge Codes Inpatient or Observation consultation: 57783
--- NOTE | 2025-02-06 16:57 | PC.NURSE ---
pt to OR via bed.
--- NOTE | 2025-02-06 17:23 | SUR.OPER ---
Supine on padded OR bed, head on pillow, arms secured on padded arm boards at <90 degrees abduction, legs uncrossed, safety belt at thigh, tape over blanket over lower legs.
[2025-02-06] MEDS: VANCOMYCIN 1,000 MG VIAL 1000 MG TOP (17:30)
--- NOTE | 2025-02-06 18:04 | PM.GYNOP.1 ---
Operative Date/Time/Diagnoses Date of procedure: 02/06/25 Time of procedure: 17:30 Pre-op diagnosis: Post section wound infection/abscess Post-op diagnosis: same Procedure & Clinicians Procedure: Procedures Operation Date: 02/06/25 13:00 Actual Procedure Side Surgeon p Section incision irrigation and debridement with wound vac placement Sumaya Saez DO Indications: Patient is a 24yo s/p PLTCS for arrest of descent on 01/29/2025 presented to the ER with fevers and wound erythema/tenderness. She was started on IV vancomycin and gentamycin but this am the wound opened and started draining copious purulent/malodorous fluid. Recommended wound irrigation and debridement and patient agreed to proceed to the OR. Surgeon: Sumaya Saez Anesthesia Type: MAC +/- Operative Notes Findings: Copious drainage of purulent/malodorous fluid from a 1cm opening on the skin on the right lateral edge with erythema of the skin and induration tracking ~ 5cm superiorly from the midline of the incision to the lateral edge. After the incision was opened there was a deep opening tracking superior approximately 5cm within the subcutaneous tissues. The rest of the incision was opened and explored noting healthy tissues. The fascia was thoroughly inspected and noted to be intact and well healed. Closure Type: non-primary Specimen(s): none Applied: other (Wound vac applied in OR) Estimated blood loss (mL): 10 Blood products transfused: none Procedure in detail: Patient was brought back to the OR with IVF and sequential compression devices in place. She was placed under MAC and the wound was evaluated noting the above findings of copious drainage of fluid from a 1cm separation of the skin. A deep wound culture was collected. The area was then prepped and draped in sterile fashion with betadine. A timeout was performed. The incision was then reopened using the scalpel and scissors to remove sutures. The entire length of the incision was opened to explore and irrigate the entire wound. The pulse lavage dining room cashier was used to irrigate and a sterile scrub brush was dipped in betadine to debride the infected tissues until healthy tissues were revealed in the area of the abscess formation. The remaining tissue was irrigated and noted to have healthy tissue. The fascia was thoroughly probed and confirmed to be intact. The incision was then irrigated with betadine and saline solution. Once the tissue appeared to be healthy with all devitalized tissue debrided the procedure was concluded. The wound vac was opened and the sponge was cut to accommodate the tracking area and the entire incision. The vac was applied and a good seal was confirmed. The wound vac was turned on at 125mmhg with low, continuous pressure. Complications: none Post-operative Condition: stable Disposition: Acute Care Plan for aftercare: Return to center room for monitoring overnight and continue IV antibiotics. If afebrile overnight will switch to oral clindamycin in the am and wound care consulted to see patient regarding wound vac management and outpatient follow up.
--- NOTE | 2025-02-06 18:44 | PC.NURSE ---
pt back from PACU via bed.
--- NOTE | 2025-02-06 21:23 | PC.NURSE ---
Report given to BELGICA Cleaning in acute care. Patient to be transferred to acute care due to census and staffing in Labor and Delivery
[2025-02-07] MEDS: KETOROLAC 30 MG/ML VIAL IV ×3 (00:06→12:26)
[2025-02-07 03:00] VITALS: BP 108/65; PULSE 72; RESP 18; TEMP 36; O2SAT 97
[2025-02-07] MEDS: ACETAMINOPHEN 325 MG TABLET 650 MG PO ×4 (03:12→21:50)
[2025-02-07] MEDS: SODIUM CHLORIDE 0.9% 1,000 ML 100 ML IV ×2 (06:31→17:38)
[2025-02-07] MEDS: VANCOMYCIN 1,000 MG/200 ML PIGGYBACK 200 MG IV (06:31)
[2025-02-07 06:39] LABS: Blood Urea Nitrogen 12 mg/dL (7-17); Calcium 8.5 mg/dL (8.4-10.2); Carbon Dioxide 21 mmol/L (22-32); Chloride 114 mmol/L (98-107); Estimated Glomerular Filt Rate > 60 mL/min (>60); Glucose 137 mg/dL (70-99); HEMOLYSIS < 15 (0-50); Potassium 4.6 mmol/L (3.4-5.1); Sodium 141 mmol/L (137-145)
[2025-02-07 06:43] LABS: Add Manual Diff / Slide Review NO; Hematocrit 31.5 % (36-46); Hemoglobin 10.4 g/dL (12.0-16.0); Lymphocytes Absolute Auto 1200 /uL (1100-4500); Mean Corpuscular HGB Conc 33.1 % (30-36); Mean Corpuscular Hemoglobin 29.6 PG (26-34); Mean Corpuscular Volume 89.3 fL (80-100); Platelet Count 368 X10^3/uL (150-400)
[2025-02-07] MEDS: VANCOMYCIN TROUGH 1 REQUEST MISC (07:20)
[2025-02-07 08:47] VITALS: BP 99/62; PULSE 67; RESP 18; TEMP 36.5; O2SAT 97
[2025-02-07] MEDS: PRENATAL VIT,CALC/IRON/FOLIC 1 TABLET 1 TAB PO (08:50)
--- NOTE | 2025-02-07 10:56 | DIET.CONS ---
Dietary Consultation Note Admission Date: 02/06/2025 22:08 Assessment: 24 y F admitted for post-op infections. Dietitian consulted for post I&D, wound vac. Met with pt at bedside. Pt typically having meat and/or dairy source at all 3 meals and taking vitamin. Ht: 158.5 cm Wt: 65.771 kg BMI: 26.2 Last BM: 02/05/25 (02/05/25 17:37) MNA: 12 Robert Score: 22 Diet: 02/05/25 Dinner General (Regular) Diet Diet Modifications: Labs: RBC 3.53 X10^6/uL (4.0-5.2) L 02/07/25 06:00 Hgb 10.4 g/dL (12.0-16.0) L 02/07/25 06:00 Hct 31.5 % (36-46) L 02/07/25 06:00 Creatinine 0.49 mg/dL (0.52-1.04) L 02/07/25 06:00 Lactate 1.0 mmol/L (0.7-2.1) 02/05/25 14:21 Nutrition Diagnosis: Increased nutrient needs (protein/micronutrients) r/t healing needs aeb wound/wound vac Interventions: Rocky BID Provided educ on adequate protein and micronutrient intake and hydration, provided sample Rocky and handout EER: 80 g protein (1.25 g/kg per wound) Monitoring/Evaluations: PO intakes Electronically Signed by: Liberty Weller 02/07/25 10:56 Clinical Dietitian [address] [address]
[2025-02-07 13:57] VITALS: BP 108/67; PULSE 96; RESP 16; TEMP 36.7; O2SAT 98
--- NOTE | 2025-02-07 14:58 | CM.DANOTE ---
Addendum entered by SREE Garland 02/07/25 15:52: ADD: RN kindly brought back signed auth form for Wound Vac as Dr. Saez had to go to OR for surgery and some information unknown to Provider on the auth form regarding wound supplies and needs. ROBINSON secure emailed to Hernesto at [facility] to see if the auth process could be started and may need to contact [facility] to get additional recommendation on wound care supply needs for the order form. BF Addendum entered by SREE Garland 02/07/25 15:38: ADD: Per RN, Dr. Saez kindly will return to the floor this evening and review the Wound Vac Order Auth form to complete this evening towards ordering home wound vac. SW to send this to Hernesto at [facility] in the AM. BF Original Note: Patient is a 24 yo female who was admitted INPT Status on 02/06/25 for post op infection/abscess. Pt has [employer] for insurance and her PCP is Dr. Anthony at [facility]. EMR was reviewed. Per MD, pt with recent c section for L&D and developed a fever and was admitted for post op abscess and was taken to OR for I&D. Wound Vac placed and anticipate wound vac and wound care at discharge. ROBINSON called [facility] this morning and alerted them to Wound Consult order and Dr De La O kindly met bedside with pt and recommends outpt wound clinic follow up. SW notified RN and MD of need for [facility] Wound Vac order form to be completed by Dr. Saez or Dr. Thomas in order to place order for home wound vac at discharge. Sent referral to [facility] and spoke to Ruth who is aware that pt will need to get on the schedule for f/u after discharge. SW will just need to alert them when pt getting close to discharge so they can get her on their schedule. Recommends also setting up HH RN to assist as well with the holiday this week. Pt resides in [place] so checked with [facility] (not currently accepting [facility]) and [facility] and they will review pt's insurance info and confirm if they can accept. [facility] does not cover [facility]. Made referral to [facility] Wound Vac with clinicals to review and awaiting the Provider Order form to be completed to send in to [facility] as well. Plan: SW to follow for plan of discharge home with spouse and baby with new home wound vac through [facility] and to confirm if [facility] can accept and to alert [facility] of pt discharge to get her on their schedule. SREE Garland Discharge Planning/Care Management CM Discharge Assessment Start: 02/07/25 14:40 Freq: Status: Active Protocol: Document 02/07/25 14:40 BF (Rec: 02/07/25 14:55 BF [id number]) Discharge Planning Assessment Assigned Discharge SREE Rivera Toll Operator Provider Amanda Anthony Insurance [place] DPOA/Assigned none Designee Name Advance Directives? No Advance Directives No on File History Provided By Patient,Significant Other,Medical Record Has Patient been Yes admitted in last 30 days? Comment recently admitted for C Section/labor Prior Living House Arrangements Household Members significant other,children Type of Drives own vehicle transporation used prior to admit Independent with ADL Yes 's Is patient alert and Yes oriented? Caregiver for Yes: baby Another Community Services Wound Care used prior to admission: Patient/Family Home with Home Health Preference Barriers to No Discharge Discharge Plan Home with Home Health [facility] Home Health Nurse Referrals Initiated Home Health,Other Additional Comment Wound care also Whiteboard Updated Yes in Patient Room with name and ext. # of Screen Making Technician Review Status In Process Please Provide Date 02/07/25 Initial DC Assessment Was Performed Next Review Type Continued Stay Review
--- NOTE | 2025-02-07 15:57 | PM.CN ---
History of Present Illness Consult details Date Patient Seen: 02/07/25 Time Patient Seen: 12:30 Chief complaint: post op wound infection Narrative: The patient is a 24-year-old female with no chronic illnesses who is status post on January 29, 2025. She was readmitted February 05 with a wound infection. She underwent I&D of the surgical wound and placement of a wound VAC on February 06, 2025. The fascia was noted to be intact at the time of surgery. The patient reports some mild soreness and has not had any fever or chills. She reports good appetite and denies having any other recent changes in her overall health. She is currently receiving antibiotic therapy. White count his up to 17.2 today but the patient remains afebrile. Final cultures are still pending. The patient has no prior history of having wound infections in the past. Meds Home Medications and Allergies Home Medications ?Medication ?Instructions ?Recorded ?Confirmed ?Type vitamin-ferrous sulfate 1 tab PO 11/29/24 12/02/24 History 27 mg iron-folic acid 0.8 mg tablet duloxetine 20 mg capsule,delayed 20 mg PO DAILY #90 caps 12/02/24 01/28/25 Rx release RSVPreF3 antigen-AS01E 0.5 ml IM ONCE #1 ea 12/13/24 01/28/25 Rx adjuvant(PF) 120 mcg/0.5 mL IM suspension, kit cholecalciferol (vitamin D3) 10 400 unit PO DAILY #9.2 mL 01/31/25 Rx mcg/drop (400 unit/drop) oral drops (Baby Vitamin D3) cyclobenzaprine 5 mg tablet 5 mg PO TID PRN muscle spasm #20 01/31/25 Rx tabs oxycodone 5 mg tablet 5 mg PO Q4H PRN Pain, Moderate 01/31/25 Rx (4-6) #15 tabs Allergies Allergy/AdvReac Type Severity Reaction Status Date / Time nitrofurantoin (From Allergy Severe Hives Verified 01/28/25 20:52 Macrobid) sulfamethoxazole (From Allergy Severe Hives Verified 01/28/25 20:52 Bactrim) trimethoprim (From Bactrim) Allergy Severe Hives Verified 01/28/25 20:52 chicken derived Allergy Intermediate Numbness Verified 01/28/25 20:52 Penicillins AdvReac Mild Vomiting Verified 01/28/25 20:52 Review of Systems Constitutional Comments: Negative for any other recent changes in overall health Exam Vital Signs (past 8 hours): - 02/07/25 08:47 02/07/25 13:57 Temperature 97.7 F 98.1 F Pulse Rate 67 96 H Respiratory Rate 18 16 Blood Pressure 99/62 108/67 Pulse Oximetry 97 98 Oxygen Flow Rate 0 0 Oxygen Delivery Method Room Air Oxygen Flow Rate 0 Narrative Exam Narrative: Well-developed well-nourished female who is alert and oriented, no apparent distress GI Other: Soft, nontender, nondistended Skin Other: Wound VAC in place over Pfannenstiel incision Objective Labs 02/07/25 06:00 02/07/25 06:00 Labs: Laboratory Results - last 24 hr 02/07/25 06:00 WBC 17.2 H RBC 3.53 L Hgb 10.4 L Hct 31.5 L MCV 89.3 MCH 29.6 MCHC 33.1 RDW 13.7 Plt Count 368 Neut % (Auto) 90.4 H Lymph % (Auto) 6.9 L Terrell % (Auto) 2.3 L Eos % (Auto) 0.0 L Baso % (Auto) 0.4 Neut # (Auto) 91786 H Lymph # (Auto) 1200 Terrell # (Auto) 400 Eos # (Auto) 0 Baso # (Auto) 100 Sodium 141 Potassium 4.6 D Chloride 114 H Carbon Dioxide 21 L BUN 12 Creatinine 0.49 L Estimated GFR > 60 BUN/Creatinine Ratio 24.5 H Glucose 137 H Calcium 8.5 Vancomycin Trough < 5.0 L PFSH Medical History Breech presentation Rubella non-immune status, antepartum Ovarian cyst Surgical History History of tympanostomy History of dilation and curettage Hx of breast reduction, elective Family History Grandmother Hypothyroidism Sister Depression Grandfather Brain cancer Social History marital status: unmarried,living together number of children: 0 household members: significant other and children lives independently: Yes caregiver/support person: No housing: house pets and animals: Yes (dogs) education level: college (some college) 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 ([employer]) current occupational exposures/hazards: No special steve needs: No travel history: over 6 months ago Safety seatbelt use: always water heater temp set < 120 deg: Yes working smoke detector in home: Yes fire extinguisher in home: Yes carbon monox detector in home: Yes firearms in home: Yes firearms unloaded and locked: Yes do you feel safe at home: Yes Tobacco & Substance Use Smoking Status: Never smoker Tobacco: How many years used: 3 (off and on) Smokeless tobacco user: other quit status: has quit before second hand exposure: No alcohol intake: former substance use type: does not use Diet and Exercise during the past year weight has: decreased > 10 lbs (intentional) well-balanced diet: daily or most days daily servings fruits/ve-4 caffeine: Yes (single cup coffee) Type(s) of exercise: walking Assessment & Plan Assessment and plan (1) Superficial postoperative wound infection: Status: Acute (2) Unspecified open wound of abdominal wall, unspecified quadrant without penetration into peritoneal cavity, sequela: Status: Acute Assessment & Plan narrative: Status post I&D of postoperative wound infection with wound VAC in place. Recommend continuing negative pressure wound therapy, start protein, zinc, and vitamin-C supplementation. Follow up at wound center after discharge. Time-Based Coding :: [ 40 MINUTES] spent with patient and on the chart (including review of chart, obtaining history, exam, reviewing outside data, placing orders, documenting exam and treatment plan, and counseling patient) on [02/07/25].
--- NOTE | 2025-02-07 17:11 | P.PN_ITS ---
Subjective Subjective Date Patient Seen: 02/07/25 Time Patient Seen: 12:30 Interval history: Sherlyn doing well today. reports that she is feeling much better today then yesterday. tolerating regular diet, ambulating. Exam Vital Signs (past 8 hours): - 02/07/25 13:57 Temperature 98.1 F Pulse Rate 96 H Respiratory Rate 16 Blood Pressure 108/67 Pulse Oximetry 98 Oxygen Flow Rate 0 Oxygen Delivery Method Room Air Oxygen Flow Rate 0 Narrative Exam Narrative: General- AAO x3, NAD abdomen- soft, nondistended Wound vac in place- mild erythema on the right lateral edges, unchanged from previously, previous induration resolved LE- trace edema Objective Labs 02/07/25 06:00 02/07/25 06:00 Labs: Laboratory Results - last 24 hr 02/07/25 06:00 WBC 17.2 H RBC 3.53 L Hgb 10.4 L Hct 31.5 L MCV 89.3 MCH 29.6 MCHC 33.1 RDW 13.7 Plt Count 368 Neut % (Auto) 90.4 H Lymph % (Auto) 6.9 L [place] % (Auto) 2.3 L Eos % (Auto) 0.0 L Baso % (Auto) 0.4 Neut # (Auto) 01457 H Lymph # (Auto) 1200 [place] # (Auto) 400 Eos # (Auto) 0 Baso # (Auto) 100 Sodium 141 Potassium 4.6 D Chloride 114 H Carbon Dioxide 21 L BUN 12 Creatinine 0.49 L Estimated GFR > 60 BUN/Creatinine Ratio 24.5 H Glucose 137 H Calcium 8.5 Vancomycin Trough < 5.0 L PFSH Medical History Breech presentation Rubella non-immune status, antepartum Ovarian cyst Surgical History History of tympanostomy History of dilation and curettage Hx of breast reduction, elective Family History Grandmother Hypothyroidism Sister Depression Grandfather Brain cancer Social History marital status: unmarried,living together number of children: 0 household members: significant other and children lives independently: Yes caregiver/support person: No housing: house pets and animals: Yes (dogs) education level: college (some college) 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) current occupational exposures/hazards: No special steve needs: No travel history: over 6 months ago seatbelt use: always water heater temp set < 120 deg: Yes working smoke detector in home: Yes fire extinguisher in home: Yes carbon monox detector in home: Yes firearms in home: Yes firearms unloaded and locked: Yes do you feel safe at home: Yes Smoking Status: Never smoker Tobacco: How many years used: 3 (off and on) Smokeless tobacco user: other quit status: has quit before second hand exposure: No alcohol intake: former substance use type: does not use during the past year weight has: decreased > 10 lbs (intentional) well-balanced diet: daily or most days daily servings fruits/ve-4 caffeine: Yes (single cup coffee) Type(s) of exercise: walking Assessment & Plan Post-op Postoperative Procedures: Procedures Operation Date: 02/06/25 13:00 Actual Procedure Side Surgeon p Section incision irrigation and debridement with wound vac placement Sumaya Saez DO Postoperative day: 1 Postoperative status: doing well Postoperative status narrative: Sherlyn is a 24yo G1 now P1001 s/p irrigation and wound debridement with wound vac placement due to post op wound abscess after PLTCS on 01/29/25. 1. Post op day 1 - doing well - meeting post op milestones - Afebrile >24 hours, Tlast- 02/05/25 at 2043- 100.4 F, IV vanc discontinued - will switch to oral clindamycin to complete 7 day course- 300mg q 8 hours - clindamycin used due to patient multiantibiotic allergy profile - discussed that overall this is safe with but to look for signs of affecting GI jewels like diarrhea, thrush, blood in stool- if things occur then hold breast milk and should improve. currently using only part breast milk and formula so levels transmitting to baby expected to be low 2. Wound Vac in place - placed in the OR after wound debridement and irrigation - Wound care team seeing patient and home machine has been ordered - discharge home on hold, waiting for home wound vac machine and coordination of care in outpatient wound care clinic dispo- discharge home tomorrow am once wound vac machine available Rx clindamycin 300mg PO Q8 hours x 7 days sent to pharmacy Postoperative plan: routine post-op care Time Spent With Patient Time with patient: 15-24 minutes Quality VTE Deep Vein Thrombosis/Pulmonary Embolism Present on Admission: No
[2025-02-07] MEDS: IBUPROFEN 600 MG TABLET PO ×2 (17:38→23:06)
[2025-02-07 19:00] VITALS: BP 114/76; PULSE 73; RESP 20; TEMP 36.6; O2SAT 96
[2025-02-07] MEDS: CLINDAMYCIN 150 MG CAPSULE 300 MG PO (22:14)
[2025-02-08] MEDS: ACETAMINOPHEN 325 MG TABLET 650 MG PO ×3 (03:10→14:41)
[2025-02-08] MEDS: IBUPROFEN 600 MG TABLET PO ×2 (06:18→12:59)
[2025-02-08] MEDS: CLINDAMYCIN 150 MG CAPSULE 300 MG PO ×2 (06:18→14:41)
[2025-02-08 07:11] VITALS: BP 112/79; PULSE 73; RESP 17; TEMP 36.3; O2SAT 97
[2025-02-08] MEDS: PRENATAL VIT,CALC/IRON/FOLIC 1 TABLET 1 TAB PO (09:21)
--- NOTE | 2025-02-08 14:57 | P.DS_ITS ---
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 She was admitted and received IV vancomycin overnight but the next day the wound opened and was draining purulent fluid so decision made to proceed to the OR for irrigation and wound debridement. She had an uncomplicated procedure and wound vac applied to the wound. She was discharged home on POD 2 after wound care consulted and a home wound vac was approved by insurance. she will be discharged home with follow up in wound care clinic for management of wound vac. Status at Discharge Cognitive/behavioral status at discharge: oriented Functional status at discharge: independent ambulation Overall status at discharge: patient is progressing back to baseline Time Spent with Patient Time spent: Less than 30 minutes Exam Vital Signs (past 8 hours): - 02/08/25 07:11 Temperature 97.3 F L Pulse Rate 73 Respiratory Rate 17 Blood Pressure 112/79 Pulse Oximetry 97 Oxygen Flow Rate 0 Oxygen Delivery Method Room Air Oxygen Flow Rate 0 Narrative Exam Narrative: General- AAO x 3, NAD lungs- unlabored respirations uterus- firm below umbilicus, nontender incision- wound vac in place- working, surrounding skin eythema improved lochia- minimal LE- trace edema Objective Labs 02/07/25 06:00 02/07/25 06:00 [facility] Medical History Breech presentation Rubella non-immune status, antepartum Ovarian cyst Surgical History History of tympanostomy History of dilation and curettage Hx of breast reduction, elective Family History Grandmother Hypothyroidism Sister Depression Grandfather Brain cancer Social History marital status: unmarried,living together number of children: 0 household members: significant other and children lives independently: Yes caregiver/support person: No housing: house pets and animals: Yes (dogs) education level: college (some college) 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 ([employer]) current occupational exposures/hazards: No special steve needs: No travel history: over 6 months ago seatbelt use: always water heater temp set < 120 deg: Yes working smoke detector in home: Yes fire extinguisher in home: Yes carbon monox detector in home: Yes firearms in home: Yes firearms unloaded and locked: Yes do you feel safe at home: Yes Tobacco: How many years used: 3 (off and on) Smokeless tobacco user: other quit status: has quit before second hand exposure: No alcohol intake: former substance use type: does not use during the past year weight has: decreased > 10 lbs (intentional) well-balanced diet: daily or most days daily servings fruits/ve-4 caffeine: Yes (single cup coffee) Type(s) of exercise: walking Discharge Assessment & Plan Assessment and Plan Assessment: Sherlyn is a 24yo G1 now P1001 s/p irrigation and wound debridement with wound vac placement due to post op wound abscess after PLTCS on 01/29/25. 1. Post op day 2 - doing well - meeting post op milestones - Afebrile >24 hours, Tlast- 02/05/25 at 2043- 100.4 F, IV vanc discontinued - now on oral clindamycin to complete 7 day course- 300mg q 8 hours - clindamycin used due to patient multiantibiotic allergy profile - discussed that overall this is safe with but to look for signs of affecting GI jewels like diarrhea, thrush, blood in stool- if things occur then hold breast milk and should improve. currently using only part breast milk and formula so levels transmitting to baby expected to be low 2. Wound Vac in place - placed in the OR after wound debridement and irrigation - Wound care team seeing patient and home machine now available dispo- discharge home Rx clindamycin 300mg PO Q8 hours x 7 days sent to pharmacy Discharge Plan Discharge Plan Patient Disposition: Home Health Service Nursing Discharge Comment: If for any reason your wound-vac is malfunctioning or not working properly. Please remove dressing, apply supplied gauze, cover with an ABD pad, and tape. Leave dressing on until seen by wound care on Friday. If you wish to seek medical attention to remove non working wound-vac then please visit the Emergency Room. Discharge orders & Medications Prescriptions: Continued duloxetine 20 mg capsule,delayed release(DR/EC) 20 mg PO DAILY Qty: 90 0RF RSVPreF3 antigen-AS01E (PF) 120 mcg/0.5 mL suspension for reconstitution 0.5 ml IM ONCE Qty: 1 0RF vit-ferrous sulfat-FA 27 mg iron- 0.8 mg tablet 1 tab PO oxycodone 5 mg Tablet 5 mg PO Q4H PRN (Reason: Pain, Moderate (4-6)) Qty: 15 0RF cholecalciferol (vitamin D3) [Baby Vitamin D3] 10 mcg/drop (400 unit/drop) drops 400 unit PO DAILY Qty: 9.2 2RF cyclobenzaprine 5 mg tablet 5 mg PO TID PRN (Reason: muscle spasm) Qty: 20 0RF Follow up/Referrals: uLl De La O MD [Physician, Wound Care] - As previously scheduled Referral Note: Follow FridayFebruary 14 @ [address] in the lower level Sumaya Saez DO [Physician, Gynecology] - 1 Week Problems: Superficial postoperative wound infection; Post-operative wound abscess; Unspecified open wound of abdominal wall, unspecified quadrant without penetration into peritoneal cavity, sequela Amanda Anthony MD [Primary Care Provider, Family Practice] Diet/Activity/Treatments Diet: Diet as Tolerated Activity: As tolerated- no lifting Skin/Wound/Dressing Care Skin care: No showering until seen by wound care. May do sponge bath but no submersion Report to your healthcare provider any signs of infection, such as:: chills, fever, night sweats, increased pain, unusual drainage and unusual redness Dressing: If wound Vac stops working take dressing off and foam out and cover with gauze and tape. DO NOT leave foam in if wound vac not working. Visit Report/Discharge Packet Instructions: DI for Wound Dehiscence, DI for Wound Infection, How to Use Antibiotics Wisely Stand Alone Forms: [employer], Patient Portal/API, Stroke Signs & Symptoms, Influenza Vaccine Info, Notice of Privacy Practices, Inpatient vs Outpatient, Pneumococcal Vaccine Info, Pt. Rights & Responsibilities Discharge Data Primary Care Provider: Amanda Anthony Quality VTE Deep Vein Thrombosis/Pulmonary Embolism Present on Admission: No [facility] PROFEE Charge Codes Discharge inpatient/observation: [id number]
--- NOTE | 2025-02-08 15:49 | PC.NURSE ---
Addendum entered by Rosemary Platt RN 02/08/25 17:57: Iv out. Discharge instructions given- reiterated importance of follow up appt on Friday at wound care, s/s of infection, what do if wound vac malfunctions(remove foam, repalce with abd/gauze and tape and possibly go to ED, wound vac help number, and when to follow up with surgeon. Mother at bedside. All questions answered. Ensured patient had all necessary wound vac and supplies with her at discharge. Patient wheeled out via w/c by this RN to private vehicle. Original Note: Patient alert and oriented. Waiting on authorization for home wound vac, follow up with wound care appt, and discharge order. Wound Vac dressing done @ 1500. Wound measurements Length- 7.5 inches. Width at middle of incision 1 inch. 1/2 inch deep at middle of incision. 2 inch deep (tunneling) right side of incision. .
--- NOTE | 2025-02-08 15:52 | PC.NURSE ---
Reviewed with patient instructions in regards of malfunctioning wound vac. Patient is to visit the ER immediately or to remove wound vac at home if any signs of non working equipment or malfunction. Patient is supplied with wound dressings; gauze, abd pads, and tape. Patient states understanding that she needs to have the dressing removed IGOR upon the event that the wound vac no longer is working. Also understands the importance of retaining her visit with wound care that is sched. for 2024.
--- NOTE | 2025-02-08 16:07 | CM.DPNOTE ---
DCP Continued: Reviewed EMR and team rounds for pt?s medical status. Per Provider, pt is cleared to discharge home if Wound Vac delivered and all supports in place. EKG MANAGER was in continual [facility] day [facility] [place] [facility] ph# [phone] re: pt insurance authorization to take Wound Vac home. It is reported pt's insurance is contracted with their There was an inquiry of wound bed measurement. Provider reports it to be 14cm x w 2cm x D 3cm. EKG MANAGER relayed this to [facility] with hopes this will assist in expediting the wound vac authorization. EKG MANAGER spoke with [facility], confirmed that they are able to accept referral and insurance. EKG MANAGER sent MD orders to [facility] , to send discharge summary as well. EKG MANAGER provided [facility] contact information to patient and noted that they will schedule for wound dressing management. EKG MANAGER spoke with [facility] and confirmed that patient will have a follow up appt on Friday, 02/14 at 8:00am. EKG MANAGER met with patient in room, pt reported no further questions or concerns at this time and understands they can request to speak with EKG MANAGER again as needed. Plan: Anticipating dc home with home health, [facility] follow up appt on Friday, 02/14, [facility] follow up care and [facility]ound Vac rental. CM Team will continue to follow for coordination of discharge plans. REED Jeff
== END 2025-02-08 17:59 | disposition home health service (06) | DRG 548 ==
LOC: AC 22:09
PROVIDERS: Admitting Provider Family Medicine; PCP Student in an Organized Health Care Education/Training Program; Referring Provider Family Medicine; Visit Provider Obstetrics & Gynecology
PROC: 0JD80ZZ Extraction of Abdomen Subcutaneous Tissue and Fascia, Open Approach (ICD-10-PCS; CPT 59514; principal; 2025-02-06 13:00)
DX: O86.01 Infection of obstetric surgical wound, superficial incisional site (principal); R00.0 Tachycardia, unspecified; O90.0 Disruption of cesarean delivery wound; L03.311 Cellulitis of abdominal wall; O86.4 Pyrexia of unknown origin following delivery; Z88.0 Allergy status to penicillin
CPT/HCPCS: 11042; 36415; 74177; 80048; 80053; 80202; 83605; 84145; 85025; 87040; 87070; 87075; 87147; 87185; 87205; 97605; 99223; 99231; 99233; 99238; G0379; J1100; J1885; J2405; J2704; J3010; J3373; J3375; J7030; Q9967

== ENCOUNTER → 2025-02-14 08:20 | Outpatient (CLI) | payer OTHER, SELFPAY ==
[2025-02-05 17:37] VITALS: BMI 26.2
== END ==
LOC: WC 08:59
PROVIDERS: PCP Student in an Organized Health Care Education/Training Program; Referring Provider Obstetrics & Gynecology; Visit Provider Surgery
DX: T81.89XA Other complications of procedures, not elsewhere classified, initial encounter (principal); S31.109A Unspecified open wound of abdominal wall, unspecified quadrant without penetration into peritoneal cavity, initial encounter
CPT/HCPCS: 11042; 97605; 99212

== ENCOUNTER → 2025-02-16 16:20 | Outpatient (CLI) | payer OTHER, SELFPAY ==
[2025-02-05 17:37] VITALS: BMI 26.2
== END ==
LOC: WC 16:20
PROVIDERS: PCP Student in an Organized Health Care Education/Training Program; Referring Provider Student in an Organized Health Care Education/Training Program; Visit Provider Surgery
DX: T81.89XA Other complications of procedures, not elsewhere classified, initial encounter (principal); L98.8 Other specified disorders of the skin and subcutaneous tissue; S31.109A Unspecified open wound of abdominal wall, unspecified quadrant without penetration into peritoneal cavity, initial encounter; Z88.0 Allergy status to penicillin
CPT/HCPCS: 97605